=== PATIENT | male | born 1955 | race Caucasian/White ===

== ENCOUNTER 2018-06-17 01:21 | Inpatient (IN) ==
[2018-06-17] MEDS ORDERED: Naloxone 0.4 MG/ML INJ IVP PRN (06:11)
[2018-06-17] MEDS ORDERED: Ondansetron 4 MG/2 ML VIAL IVP PRN (06:11)
--- NOTE | 2018-06-17 06:24 | Internal Med History&Physical ---
Date of Encounter: 06/17/18 Time of Encounter: 05:55 Internal Medicine - H&P: HPI Chief complaint: abdominal pain Admitted From: Hospital to Hospital Transfer Plans for Post Hospital Care: Home History of present illness: Mr. VARGAS is a 63 year old male who presents in transfer from [facility] with concerns and complaints of abdominal pain. Workup there revealed patient to have partial small bowel obstruction. He was transferred to [facility] with surgical consultation with Dr. Argueta and admission to the hospitalist service. Upon my assessment of the patient, patient states he had sudden onset of abdominal pain, nausea, and vomiting which started roughly 24 hours ago. Because of severe worsening of symptoms, he came to ER where he was diagnosed with small bowel obstruction. He had an NG tube placed, received some pain medication, and received some IV fluids. He denies any fevers, chills, or night sweats. He denies any prior surgery of his abdomen. He denies any history of inflammatory bowel disease. He does complain of some mild constipation on occasion. Prior to yesterday, he has had no GI symptoms and felt well. He denies any chronic GERD, peptic ulcer disease, or any bowel problems in the past. There is no family history of any kind of chronic bowel disorder. Past Med Surg Social Fam HX - Past Medical History Attestation: Yes The following information was validated with the patient. Source: patient, other ([facility]) Medical history: cancer (skin), hyperlipidemia, hypertension, migraine, syncope Additional medical history: skin cancer (basal cell carnimona) 3-4 removed in the last 15 years. Syncope episodes approx 5 years ago. Psychiatric history: no psych history - Past Surgical History Surgical History: no surgical history Additional surgical history: skin cancer resection - Social History Smoking Status: Never smoker Smokeless Tobacco Status: No Alcohol use: occasionally Drug use: none Current living situation: Home, With Family Activity Level: Independent ambulation Recent Out of Country Travel Within the Last 8 Weeks: No - Family History Father Adopted: [place]: Chang Vargas Age: 44 Family Member Ethnicity: Non- Living Status: Age at : 44 Cause of : aneyrsm Hx Family Cardiac Disorders: No Hx Family Respiratory Disorders: No Hx Family Cancer: No Hx Family GI Disorders: No Hx Family Genitourinary Disorders: No Hx Family Endocrine Disorder: No Hx Family Musculoskeletal Disorders: No Hx Family Neuromuscular Disorders: No Hx Family Neurologic Disorders: Yes Hx Family HEENT Disorders: No Hx Family Autoimmune Disorders: No Hx Family Reproductive Disorders: No Hx Family Psychosocial Disorders: No Hx Family Medical Disorders: No Mother Living Status: Still Living Hx Family GI Disorders: No - Constitutional Constitutional: no chills, no fever(s), no night sweats - EENT Eyes: no blurry vision, no change in vision Ears: no ear pain, no tinnitus Nose, mouth and throat: no nasal congestion, no sore throat - Cardiovascular Cardiovascular ROS IM: no chest pain, no dyspnea, no dyspnea on exertion, no lightheadedness, no paroxysmal nocturnal dyspnea, no syncope - Respiratory Respiratory: no cough, no dyspnea, no hemoptysis, no chest congestion, no excessive phlegm production, no change in phlegm color, no pain with cough - Gastrointestinal Gastrointestinal: abdominal pain, constipation, nausea, vomiting, no diarrhea, no heartburn, no hematemesis, no hematochezia, no melena - Genitourinary Genitourinary ROS male: no dysuria, no flank pain, no hematuria - Musculoskeletal Musculoskeletal ROS IM: no arthralgias, no back pain - Integumentary Integumentary IM: no rash, no jaundice - Neurological Neurological ROS: no disequilibrium, no dizziness, no focal weakness, no jaya quent falls, no headache(s) - Psychiatric Psychiatric: no anxiety, no depression - Endocrine Endocrine IM: no cold intolerance, no heat intolerance, no polydipsia, no polyuria - Allergic/Immunologic Allergic/Immunologic: no wheezing, no GI upset with certain foods - Constitutional Vitals: Temp Pulse Resp BP Pulse Ox 99.0 F 110 16 119/80 95 06/17/18 04:00 06/17/18 04:00 06/17/18 04:00 06/17/18 04:00 06/17/18 05:40 General appearance: Present: cooperative, A&O X 3, pleasant, no acute distress, answers questions appropriately Exam: see below - Head Head exam: Present: atraumatic, normal inspection - Eye Eye exam: Present: EOMI, PERRL. Absent: scleral icterus Pupils: Present: normal accommodation - ENT ENT exam: Present: mucous membranes dry, normal exam, normal oropharynx Additional comments: NG tube in place - Neck Neck exam general surgery: Present: full ROM, supple, trachea midline. Absent: tenderness, nuchal rigidity, thyromegaly - Respiratory Respiratory exam: Present: CTAB. Absent: chest wall tenderness, rales, respiratory distress, rhonchi, wheezes - Cardiovascular Cardiovascular exam: Present: RRR, +S1, +S2, tachycardia (HR 100-110's). Absent: diastolic murmur, systolic murmur - GI/Abdominal GI/Abdominal exam: Present: distended, tenderness (mild diffuse), no peritoneal signs. Absent: guarding, hepatomegaly, normal bowel sounds, rebound, splenomegaly - Extremities Exam Extremities exam: Present: full ROM, normal capillary refill, warm, radial pulses palpable and symmetrical. Absent: calf tenderness, pedal edema, tenderness - Back Exam Back exam: Absent: CVA tenderness (L), CVA tenderness (R) - Neurological Exam Neurological exam: Present: alert, CN II-XII intact, oriented X3, no focal deficits, strengths equal and symetr throughout - Psychiatric Psychiatric exam: Present: normal affect, normal mood - Skin Skin exam: Present: dry, intact, warm Internal Med - H&P Results - Labs Labs: I reviewed the records and labs from [facility] and include the following: WBC 13.1 Hemoglobin 17.3 Hematocrit 51.0 Platelet count 289 Lactic acid level 2.0 Lipase 79 Sodium 136 Potassium 4.1 Chloride 97 Carbon Dioxide 28 BUN 17 Glucose [address] scan report suggests partial small bowel obstruction as evidenced by thickening and inflammatory changes in the right hypogastric region with a transition point in the area small bowel with some mesenteric edema. - Assessment and plan (1) SBO (small bowel obstruction) Current Visit: Yes Status: Acute Assessment and plan: 1. Will keep npo and continue NG to LIWS. 2. Consult surgery for assistance. 3. Will culture blood and star antibiotics to cover GI una. 4. IVF hydration and trend lactate levels. 5. Pain control with low dose IV Fentanyl and nausea control with PRN Zofran. (2) Hypertension Current Visit: Yes Status: Acute Assessment and plan: 1. Monitor BP closley. 2. Need to obtain and verify home med list. Qualifiers: Hypertension type: essential hypertension Qualified Code(s): I10 - Essential (primary) hypertension (3) DVT prophylaxis Current Visit: Yes Status: Acute Assessment and plan: 1. Heparin SQ.
[2018-06-17] MEDS: *HR* FentaNYL (PF) 100 MCG/2 ML VIAL IVP PRN ×2 (06:43→10:36)
[2018-06-17] MEDS: 0.9 % Sodium Chloride 1,000 ML IVC SCH ×4 (06:46→23:10)
[2018-06-17 07:51] LABS: Basophils % 0.1 %; Eosinophils % 0.1 %; Hemoglobin 16.1 g/dL (12.9-16.9); Immature Granulocytes % 0.4 % (0-4); Lymphocytes # 0.7 K/mcL (0.6-4.6); Lymphocytes % 4.9 %; Mean Corpuscular HGB Conc 33.5 g/dL (31.6-35.5); Mean Corpuscular Hemoglobin 30.3 pg (28.0-33.3); Mean Corpuscular Volume 90.2 fL (83.0-100.0); Mean Platelet Volume 8.7 fL (9.4-12.4); Monocytes # 0.9 K/mcL (0.0-1.3); Monocytes % 6.1 %; Neutrophils # 12.3 K/mcL (1.6-8.9); Platelet Count 230 K/mcL (140-400); Red Blood Count 5.32 M/mcL (4.19-5.50); Red Cell Distribution Width 13.2 % (11.5-14.5); Segmented Neutrophils % 88.4 %
[2018-06-17] MEDS ORDERED: MetroNIDAZOLE 500 MG/100 ML 500 MG/100 ML BAG IVPB SCH ×3 (08:00→16:00)
[2018-06-17 08:09] LABS: Alanine Aminotransferase 32 Units/L (7-52); Albumin 3.8 g/dL (3.5-5.7); Albumin/Globulin Ratio 1.5 (1.1-2.2); Alkaline Phosphatase 90 Units/L (34-104); Aspartate Amino Transferase 23 Units/L (13-39); BUN/Creatinine Ratio 12 (6-26); Bilirubin,Total 1.5 mg/dL (0.3-1.0); Blood Urea Nitrogen 16 mg/dL (8-23); Calcium 9.4 mg/dL (8.6-10.3); Carbon Dioxide 28 mEq/L (23-29); Chloride 100 mEq/L (98-107); Globulin 2.6 g/dL (2.4-3.5); Glucose 126 mg/dL (70-105); Magnesium 1.7 mg/dL (1.6-2.6); Osmolality,Calculated 285 (280-300); Potassium 4.6 mEq/L (3.5-5.1); Sodium 136 mEq/L (136-145); Total Protein 6.4 g/dL (6.4-8.9); eGFR For Non-African Americans 54 (> 60)
[2018-06-17 08:41] LABS: INR 1.2; Prothrombin Time 13.5 Seconds (9.4-12.1)
--- NOTE | 2018-06-17 11:24 | Event Note ---
Date of Encounter: 06/17/18 Time of Encounter: 09:15 He should not continues to have abdominal pain and distention. Having decent output through nasogastric tube. Had about 310 mL since this morning. We will continue IV fluids. Follow surgery recommendations. Will hold antibiotics for now as patient does not have any or chills. Mild leukocytosis is related to SBO. Will obtain acute abdominal series.
[2018-06-17] MEDS ORDERED: Ringers Solution, Lactated 500 ML IVC ONE (13:23)
[2018-06-17] MEDS: MetroNIDAZOLE 500 MG/100 ML 500 MG/100 ML BAG IVPB SCH ×2 (13:55→21:27)
--- NOTE | 2018-06-17 13:59 | General Surgery Consult Note ---
Date of Encounter: 06/17/18 Time of Encounter: 13:00 History of Present Illness Consult date: 06/17/18 Reason for consult: other (possible SBO) Requesting physician: Eddie Casas History of present illness: 63-year-old male transferred from [facility] emergency department after presenting there with a proximally a 48 hour history of progressive abdominal pain. The patient and his family describes sudden onset of abdominal pain which progressively worsened. He denies any nausea or vomiting. The madelin ent presented to [facility] for further evaluation and treatment. There he was noted to to be afebrile with a leukocytosis, 13.1; hemoglobin 17.3, hematocrit 51.1. Neutrophils are elevated at 12.0; electrolytes were unremarkable but BUN was 17 with creatinine 1.44. Lactic acid was slightly elevated at 2.0; bilirubin was 1.7, alkaline phosphatase 118, AST 28, ALT 40. CT of the abdomen/pelvis demonstrated thickening and inflammatory changes within the right hypogastric region with a transition point in the area of small bowel with mesenteric edema. I reviewed these films with [facility] - additional findings include small bowel diverticulosis with adjacent wall thickening and inflammation consistent with diverticulitis. Some thickening in the sigmoid colon with diverticulosis noted but the acute inflammatory changes appeared to primarily involve the small bowel. Incidental note of bilateral fat-containing inguinal hernias was also described by the [facility] radiologist The patient was transferred to [facility] for further evaluation and care. following arrival at [facility], the patient was given IV fluids, IV antibiotics were initiated and NG tube was placed. As a result of these interventions the patient was feeling slightly improved this morning but still complaining of abdominal pain. Past medical history is not notable for any previous surgeries. Patient has had cutaneous neoplasm (BCC) in the remote past The patient denied significant medical history no medical records from [facility] indicate a previous history of hyperlipidemia, hypertension, migraines and a remote history of syncope. Allergies: No known drug allergies Social history: Patient is , lives with his spouse; he does not smoke, never has; he does admit to weekend alcohol consumption; the patient denies any illicit drug use. Physical examination reveals a large, age-appropriate male in no acute distress. He is 1.78 m tall, 109.1 kg, BMI 34.5 Skin is warm, without obvious jaundice, no icterus Lungs were clear bilaterally; he did experience some periumbilical pain on deep inspiration Cardiac: Rate was regular with no appreciable murmur Abdomen was soft with hypoactive bowel sounds. Tenderness was notable caudal to the umbilicus in the midline. I did not detect any intra-abdominal masses. I did not detect any peritoneal signs. Extremities no obvious clubbing, cyanosis or edema. Labs: Completed this morning at [facility] WBC 13.9 with 12.3 neutrophils; hemoglobin 16.1, hematocrit 48.0. Sodium 136, potassium 4.6, chloride 100, bicarbonate 28, BUN 16, creatinine 1.33. Total bilirubin 1.5, alkaline phosphatase 90, AST 23, ALT 32. Impression: Acute small bowel diverticulitis. No obvious perforation. No obvious small bowel perforation per my review with [facility]. The patient's acute abdominal pain appears to be due to the demonstrated small bowel diverticulitis. Acute dehydration with elevated creatinine consistent with acute kidney injury. (Patient gives no known history of renal disease) Patient also has sigmoid diverticulosis without evidence of diverticulitis. Recommendations: Resume Cipro and metronidazole which were initiated on admission but discontinued this morning. Continue aggressive IV fluid resuscitation. NG has been removed. The patient will be kept NPO until his abdominal pain has responded to the current interventions. This is been discussed with Dr. Perez as well as [facility] This is also discussed with the patient and his family. Past Med Surg Social Fam HX - Past Medical History Medical history: cancer (skin), hyperlipidemia, hypertension, migraine, syncope Additional medical history: skin cancer (basal cell carnimona) 3-4 removed in the last 15 years. Syncope episodes approx 5 years ago. Psychiatric history: no psych history - Past Surgical History Surgical History: no surgical history Additional surgical history: skin cancer resection - Social History Smoking Status: Never smoker Smokeless Tobacco Status: No Alcohol use: occasionally Drug use: none - Family History Father Adopted: [place]: Chang Tatum Age: 44 Family Member Ethnicity: Non- Living Status: Age at : 44 Cause of : aneyrsm Hx Family Cardiac Disorders: No Hx Family Respiratory Disorders: No Hx Family Cancer: No Hx Family GI Disorders: No Hx Family Genitourinary Disorders: No Hx Family Endocrine Disorder: No Hx Family Musculoskeletal Disorders: No Hx Family Neuromuscular Disorders: No Hx Family Neurologic Disorders: Yes Hx Family HEENT Disorders: No Hx Family Autoimmune Disorders: No Hx Family Reproductive Disorders: No Hx Family Psychosocial Disorders: No Hx Family Medical Disorders: No Mother Living Status: Still Living Hx Family GI Disorders: No Medications and Allergies Allergy/AdvReac Type Severity Reaction Status Date / Time No Known Drug Allergies AdvReac Unknown See Verified 06/17/18 06:34 Comments Review of Systems All systems PM: The remainder of the systems were reviewed and are negative General Surgery Exam Initial Vital Signs Temp Pulse Resp BP Pulse Ox 99.0 F 110 16 119/80 95 06/17/18 04:00 06/17/18 04:00 06/17/18 04:00 06/17/18 04:00 06/17/18 04:00 Exam Initial Vital Signs Temp Pulse Resp BP Pulse Ox 99.0 F 110 16 119/80 95 06/17/18 04:00 06/17/18 04:00 06/17/18 04:00 06/17/18 04:00 06/17/18 04:00 Results - Labs 06/17/18 07:36 06/17/18 07:36 Abnormal lab results WBC 13.9 K/mcL (4.3-11.1) H 06/17/18 07:36 MPV 8.7 fL (9.4-12.4) L 06/17/18 07:36 Neutrophils # 12.3 K/mcL (1.6-8.9) H 06/17/18 07:36 PT 13.5 Seconds (9.4-12.1) H 06/17/18 07:36 Creatinine 1.33 mg/dL (0.70-1.30) H 06/17/18 07:36 Est GFR (Non-Af Amer) 54 (> 60) L 06/17/18 07:36 Glucose 126 mg/dL (70-105) H 06/17/18 07:36 POC Glucose 110 mg/dL (70-99) H 06/17/18 07:09 Total Bilirubin 1.5 mg/dL (0.3-1.0) H 06/17/18 07:36 Diabetes panel 06/17/18 Range/Units 07:36 Sodium 136 (136-145) mEq/L Potassium 4.6 (3.5-5.1) mEq/L Chloride 100 (98-107) mEq/L Carbon Dioxide 28 (23-29) mEq/L BUN 16 (8-23) mg/dL Creatinine 1.33 H (0.70-1.30) mg/dL Glucose 126 H (70-105) mg/dL Calcium 9.4 (8.6-10.3) mg/dL AST 23 (13-39) Units/L ALT 32 (7-52) Units/L Alkaline Phosphatase 90 (34-104) Units/L Albumin 3.8 (3.5-5.7) g/dL Calcium panel 06/17/18 Range/Units 07:36 Calcium 9.4 (8.6-10.3) mg/dL Albumin 3.8 (3.5-5.7) g/dL Pituitary panel 06/17/18 Range/Units 07:36 Sodium 136 (136-145) mEq/L Potassium 4.6 (3.5-5.1) mEq/L Chloride 100 (98-107) mEq/L Carbon Dioxide 28 (23-29) mEq/L BUN 16 (8-23) mg/dL Creatinine 1.33 H (0.70-1.30) mg/dL Glucose 126 H (70-105) mg/dL Calcium 9.4 (8.6-10.3) mg/dL Adrenal panel 06/17/18 Range/Units 07:36 Sodium 136 (136-145) mEq/L Potassium 4.6 (3.5-5.1) mEq/L Chloride 100 (98-107) mEq/L Carbon Dioxide 28 (23-29) mEq/L BUN 16 (8-23) mg/dL Creatinine 1.33 H (0.70-1.30) mg/dL Glucose 126 H (70-105) mg/dL Calcium 9.4 (8.6-10.3) mg/dL Total Bilirubin 1.5 H (0.3-1.0) mg/dL AST 23 (13-39) Units/L ALT 32 (7-52) Units/L Alkaline Phosphatase 90 (34-104) Units/L Albumin 3.8 (3.5-5.7) g/dL All other labs normal. Consult Discharge Plan - Plan Referrals: Logan Miranda DO [Primary Care Provider] -
[2018-06-17] MEDS: Pantoprazole 40 MG VIAL IVP SCH (18:43)
[2018-06-17] MEDS: *HR* Heparin 5,000 UNIT/ML VIAL SQ SCH (18:43)
[2018-06-17] MEDS: *HR* OxyCODONE Immed Rel 5 MG TABLET PO PRN (19:00)
--- NOTE | 2018-06-17 20:51 | Electrocardiograph Report ---
[address] [place] [address] Test Date: 2018-06-17 Pat Name: Danielito Tatum Department: 115 Room: 3A23 Gender: M C Architect: GANESH : 1955 Requested By: Eddie Casas Order Number: [id number] Reading MD: Erica Wallace Measurements Intervals [place] Rate: 103 P: 51 IA: 166 QRS: 21 QRSD: 98 T: 5 QT: 315 QTc: 375 Interpretive Statements SINUS TACHYCARDIA ABNORMAL RHYTHM ECG Electronically Signed On 06-17-2018 20:50:21 EST by Erica Wlalace
[2018-06-18 04:23] LABS: Basophils % 0.3 %; Eosinophils % 0.1 %; Hematocrit 40.6 % (37.5-50.1); Immature Granulocytes % 0.6 % (0-4); Lymphocytes # 0.5 K/mcL (0.6-4.6); Lymphocytes % 4.5 %; Mean Corpuscular HGB Conc 33.5 g/dL (31.6-35.5); Mean Corpuscular Volume 89.6 fL (83.0-100.0); Mean Platelet Volume 8.9 fL (9.4-12.4); Monocytes # 0.8 K/mcL (0.0-1.3); Monocytes % 6.6 %; Neutrophils # 10.3 K/mcL (1.6-8.9); Platelet Count 195 K/mcL (140-400); Red Blood Count 4.53 M/mcL (4.19-5.50); Red Cell Distribution Width 13.3 % (11.5-14.5); Segmented Neutrophils % 87.9 %
[2018-06-18 04:24] LABS: Hemoglobin 13.6 g/dL (12.9-16.9)
[2018-06-18 04:42] LABS: BUN/Creatinine Ratio 17 (6-26); Blood Urea Nitrogen 19 mg/dL (8-23); Calcium 8.2 mg/dL (8.6-10.3); Carbon Dioxide 26 mEq/L (23-29); Chloride 103 mEq/L (98-107); Glucose 134 mg/dL (70-105); Osmolality,Calculated 284 (280-300); Sodium 135 mEq/L (136-145); eGFR For Non-African Americans > 60 (> 60)
[2018-06-18] MEDS: *HR* Heparin 5,000 UNIT/ML VIAL SQ SCH ×2 (05:09→17:26)
[2018-06-18] MEDS: Pantoprazole 40 MG VIAL IVP SCH ×2 (05:10→17:26)
[2018-06-18] MEDS: MetroNIDAZOLE 500 MG/100 ML 500 MG/100 ML BAG IVPB SCH ×3 (05:10→21:10)
[2018-06-18] MEDS ORDERED: 0.9 % Sodium Chloride 1,000 ML IVC SCH (08:45)
[2018-06-18] MEDS: *HR* OxyCODONE Immed Rel 5 MG TABLET PO PRN (10:10)
--- NOTE | 2018-06-18 10:39 | Internal Med Progress Note ---
Hospitalist Progress Note - Encounter Date of Encounter: 06/18/18 Time of Encounter: 09:20 - Subjective Interval History: Patient continues to have abdominal pain, although it is much better than when he initially presented. Describes it as a cramping kind of pain that is intermittent.. No fever or chills reported overnight. Tolerating ice chips well. Has not had a bowel movement. No flatus yet. - Exam Vitals: Temp Pulse Resp BP Pulse Ox 98.5 F 107 16 144/85 94 06/18/18 07:01 06/18/18 07:01 06/18/18 07:01 06/18/18 07:01 06/18/18 07:01 Exam: General: Patient is alert, mild distress, oriented x 3 ENT: Mucous membranes moist Respiratory: Good respiratory effort. Normal breath sounds. No wheezing or crackles. Cardiovascular: Regular rate and rhythm. s1 and s2 normal No clicks, rubs, gallops, or murmurs. No pedal edema Abdomen: Abdomen is soft, tender, distended Bowel sounds are hypoactive Musculoskeletal: Spontaneously moving all extremities Skin: warm, dry, intact. Neuro: Alert oriented x 3 normal cranial nerves, no focal deficits - Assessment and Plan (1) Diverticulitis small intestine Current Visit: Yes Status: Acute Assessment and Plan: Patient with acute small bowel diverticulitis with partial SBO. Surgery following. Keep nothing by mouth. Continue IV antibiotics and IV fluids. Follow surgery recommendations. Moderate risk for complications (2) SBO (small bowel obstruction) Current Visit: Yes Status: Ruled-out (3) Hypertension Current Visit: Yes Status: Chronic Assessment and Plan: Blood pressure is slightly elevated at. As patient is nothing by mouth, we will place him on IV medications to help control his blood pressure better. (4) DVT prophylaxis Current Visit: Yes Status: Acute Assessment and Plan: Continue subcutaneous heparin - Time Spent with Patient Total time spent is greater than 50% in coordination of care (as documented) at patient's floor/unit and/or counseling patient: Internal Medicine: Result - Labs CBC & Chem 7: 06/18/18 03:55 06/18/18 03:55 Labs: Short CBC 06/18/18 Range/Units 03:55 WBC 11.7 H (4.3-11.1) K/mcL Hgb 13.6 D (12.9-16.9) g/dL Hct 40.6 (37.5-50.1) % Plt Count 195 (140-400) K/mcL Neutrophils # 10.3 H (1.6-8.9) K/mcL BMP 06/18/18 03:55 Sodium 135 L Potassium 4.0 Chloride 103 Carbon Dioxide 26 BUN 19 Creatinine 1.09 Glucose 134 H Calcium 8.2 L - ABG Interpretation ABG results: PT/INR, D-dimer PT 13.5 Seconds (9.4-12.1) H 06/17/18 07:36 - Impressions Impressions Chest/Abdomen X-ray 06/17/18 11:22 IMPRESSION: Stable partial small bowel obstruction. D/ / 06/17/2018 12:17:11 Fritz Barroso MD / binh Interpreting Provider: Fritz Barroso MD Consult Discharge Plan - Plan Referrals: Logan Miranda DO [Primary Care Provider] - (1) Diverticulitis small intestine Qualifiers: Diverticulitis bleeding: without bleeding Diverticulitis complication: unspecified complication status Qualified Code(s): K57.12 - Diverticulitis of small intestine without perforation or abscess without bleeding (3) Hypertension Qualifiers: Hypertension type: essential hypertension Qualified Code(s): I10 - Essential (primary) hypertension
--- NOTE | 2018-06-18 11:44 | General Surgery Progress Note ---
Date of Encounter: 06/18/18 Time of Encounter: 11:39 Subjective Patient reports: feels better, still having pain, pain is less Narrative: General Surgery - Patient feeling better; cramping abdominal pain is diminished. No nausea or vomiting. The patient is twister tender low abdomen without discernible intra-abdominal masses. No elicited peritoneal signs Maximum temperature 99.9, tachycardia persists, ranged 106 - 112; respiratory rate 16, blood pressure 144/85. Lungs: Clear, no obvious pain on deep inspiration Abdomen: Soft with active bowel sounds. Tenderness caudal to the umbilicus without palpable masses. No rebound. No flatus or BM Laboratories: WBC has improved to 11.7, neutrophils to reduce to 10.3. Hemoglobin 13.6, hematocrit 40.6 reflective of rehydration. Platelet count 195,000 Sodium 135, potassium 4.0, chloride 103, bicarbonate 26, BUN 19, creatinine corrected to 1.09 Impression: Acute small bowel diverticulitis without obvious perforation. Patient responding to medical management. Bowel activity has improved, however, no flatus or BM yet. Persistent abdominal pain but it has diminished Renal status returned to normal Plan: Allow clear liquids Encourage activity out of bed Continue to monitor for worsening abdominal pain Repeat CBC in a.m. Objective Vital Signs - Last 8 Hours Temp Pulse Resp BP Pulse Ox 06/18/18 10:51 99.9 F H 112 14 127/86 92 06/18/18 07:01 98.5 F 107 16 144/85 94 06/18/18 04:56 99.0 F 109 16 120/78 94 Intake and Output 06/17/18 06/18/18 06/18/18 23:59 07:59 15:59 Intake Total 2860 / 2860 1300 / 1300 Output Total 275 / 275 325 / 325 Balance 2585 / 2585 975 / 975 Intake: IV Fluids 2800 / 2800 1300 / 1300 0.9 % Sodium Chloride 1,000 ML 2000 / 2000 1000 / 1000 @ 125 mls/hr IVC .Q8H [facility] Rx#: [id number] Lactated Ringers 500 ML @ 1000 500 / 500 mls/hr IVC .Q30M ONE Rx#: [id number] Cipro Premix 400 MG/200 ML 400 200 / 200 200 / 200 mg In 200 ml @ 200 mls/hr IVPB Q12H [facility] Rx#:[id number] Flagyl Premix 500 MG/100 ML 500 100 / 100 100 / 100 mg In 100 ml @ 100 mls/hr IVPB Q8H [facility] Rx#:[id number] Oral 60 / 60 0 / 0 Output: Urine 275 / 275 325 / 325 Other: Meal NPO # Voids 1 # Bowel Movements 0 0 Weight 105.9 kg Blood Glucose* 102 108 Patient Weight 06/18/18 23:59 Weight 105.9 kg - Labs 06/18/18 03:55 06/18/18 03:55 Diabetes panel 06/18/18 Range/Units 03:55 Sodium 135 L (136-145) mEq/L Potassium 4.0 (3.5-5.1) mEq/L Chloride 103 (98-107) mEq/L Carbon Dioxide 26 (23-29) mEq/L BUN 19 (8-23) mg/dL Creatinine 1.09 (0.70-1.30) mg/dL Glucose 134 H (70-105) mg/dL Calcium 8.2 L (8.6-10.3) mg/dL Calcium panel 06/18/18 Range/Units 03:55 Calcium 8.2 L (8.6-10.3) mg/dL Pituitary panel 06/18/18 Range/Units 03:55 Sodium 135 L (136-145) mEq/L Potassium 4.0 (3.5-5.1) mEq/L Chloride 103 (98-107) mEq/L Carbon Dioxide 26 (23-29) mEq/L BUN 19 (8-23) mg/dL Creatinine 1.09 (0.70-1.30) mg/dL Glucose 134 H (70-105) mg/dL Calcium 8.2 L (8.6-10.3) mg/dL Adrenal panel 06/18/18 Range/Units 03:55 Sodium 135 L (136-145) mEq/L Potassium 4.0 (3.5-5.1) mEq/L Chloride 103 (98-107) mEq/L Carbon Dioxide 26 (23-29) mEq/L BUN 19 (8-23) mg/dL Creatinine 1.09 (0.70-1.30) mg/dL Glucose 134 H (70-105) mg/dL Calcium 8.2 L (8.6-10.3) mg/dL Consult Discharge Plan - Plan Referrals: Logan Miranda DO [Primary Care Provider] -
[2018-06-18] MEDS ORDERED: *HR* Metoprolol 5 MG/5 ML VIAL IVP SCH (12:00)
[2018-06-18] MEDS ORDERED: *HR* Metoprolol 5 MG/5 ML VIAL IVP PRN (12:49)
[2018-06-18] MEDS: 0.9 % Sodium Chloride 1,000 ML IVC SCH ×2 (12:51→23:40)
[2018-06-19 03:57] LABS: Basophils % 0.2 %; Eosinophils % 0.3 %; Hematocrit 39.9 % (37.5-50.1); Hemoglobin 13.5 g/dL (12.9-16.9); Immature Granulocytes % 0.5 % (0-4); Lymphocytes # 0.4 K/mcL (0.6-4.6); Lymphocytes % 4.6 %; Mean Corpuscular HGB Conc 33.8 g/dL (31.6-35.5); Mean Corpuscular Hemoglobin 30.3 pg (28.0-33.3); Mean Corpuscular Volume 89.7 fL (83.0-100.0); Mean Platelet Volume 9.3 fL (9.4-12.4); Monocytes # 0.6 K/mcL (0.0-1.3); Monocytes % 6.4 %; Neutrophils # 8.1 K/mcL (1.6-8.9); Platelet Count 209 K/mcL (140-400); Red Blood Count 4.45 M/mcL (4.19-5.50); Red Cell Distribution Width 13.2 % (11.5-14.5)
[2018-06-19] MEDS: MetroNIDAZOLE 500 MG/100 ML 500 MG/100 ML BAG IVPB SCH ×3 (05:18→22:05)
[2018-06-19] MEDS: Pantoprazole 40 MG VIAL IVP SCH ×2 (05:19→18:46)
[2018-06-19] MEDS: *HR* Heparin 5,000 UNIT/ML VIAL SQ SCH ×2 (05:19→18:46)
[2018-06-19] MEDS: *HR* OxyCODONE Immed Rel 5 MG TABLET PO PRN (07:29)
[2018-06-19] MEDS ORDERED: Aspirin Enteric Coated 81 MG Tablet PO SCH (09:00)
[2018-06-19] MEDS ORDERED: hydroCHLOROthiazide 25 MG TABLET PO SCH (09:00)
--- NOTE | 2018-06-19 10:08 | Internal Med Progress Note ---
Hospitalist Progress Note - Encounter Date of Encounter: 06/19/18 Time of Encounter: 08:45 - Subjective Interval History: Patient complaining of abdominal cramps after he eats. They do resolve after some time. He has not passed flatus or had a bowel movement yet. No fever or chills reported overnight. No new episodes of nausea or vomiting. - Exam Vitals: Temp Pulse Resp BP Pulse Ox 97.8 F 97 18 146/84 91 06/19/18 07:13 06/19/18 07:13 06/19/18 07:13 06/19/18 07:13 06/19/18 07:13 Exam: General: Patient is alert, mild distress, oriented x 3 ENT: Mucous membranes moist Respiratory: Good respiratory effort. Normal breath sounds. No wheezing or crackles. Cardiovascular: Regular rate and rhythm. s1 and s2 normal No clicks, rubs, gallops, or murmurs. No pedal edema Abdomen: Abdomen is soft, distended, mildly tender. Bowel sounds are present but hypoactive Musculoskeletal: Spontaneously moving all extremities Skin: warm, dry, intact. Neuro: Alert oriented x 3 normal cranial nerves, no focal deficits - Assessment and Plan (1) Diverticulitis small intestine Current Visit: Yes Status: Acute Assessment and Plan: With possible partial SBO. Patient complaining of abdominal cramps with diet. Surgery following. No further advancing of diet at this time. We will await surgery recommendations. WBC count normal now. Inflammation appears to be decreasing. No new episodes of fever. Continue current antibiotics. Continue gentle hydration. (2) SBO (small bowel obstruction) Current Visit: Yes Status: Ruled-out (3) Hypertension Current Visit: Yes Status: Chronic Assessment and Plan: Resume home medications. We will continue to monitor blood pressure and adjust antihypertensive regimen accordingly. (4) DVT prophylaxis Current Visit: Yes Status: Acute Assessment and Plan: Continue subcutaneous heparin - Time Spent with Patient Total time spent is greater than 50% in coordination of care (as documented) at patient's floor/unit and/or counseling patient: Internal Medicine: Result - Labs CBC & Chem 7: 06/19/18 03:14 06/18/18 03:55 Labs: Short CBC 06/19/18 Range/Units 03:14 WBC 9.2 (4.3-11.1) K/mcL Hgb 13.5 (12.9-16.9) g/dL Hct 39.9 (37.5-50.1) % Plt Count 209 (140-400) K/mcL Neutrophils # 8.1 (1.6-8.9) K/mcL - ABG Interpretation ABG results: PT/INR, D-dimer PT 13.5 Seconds (9.4-12.1) H 06/17/18 07:36 Consult Discharge Plan - Plan Referrals: Logan Miranda DO [Primary Care Provider] - (1) Diverticulitis small intestine Qualifiers: Diverticulitis bleeding: without bleeding Diverticulitis complication: unspecified complication status Qualified Code(s): K57.12 - Diverticulitis of small intestine without perforation or abscess without bleeding (3) Hypertension Qualifiers: Hypertension type: essential hypertension Qualified Code(s): I10 - Essential (primary) hypertension
[2018-06-19] MEDS ORDERED: Isovue-370 500 ML BOTTLE IVP ONE (11:00)
--- NOTE | 2018-06-19 11:00 | General Surgery Progress Note ---
Date of Encounter: 06/19/18 Time of Encounter: 10:53 Subjective Patient reports: feels better, no flatus, no bowel movement Narrative: General Surgery - Patient feeling better, previously described cramping abdominal pain appears to be diminishing. No nausea or vomiting. Clear liquid diet ordered but patient consuming very little. The patient remains afebrile, currently 97.8, pulse 96-99 (tachycardia appears to be resolved); RR 14; BP 134/69 Lungs: Clear; no obvious abdominal pain on deep inspiration Abdomen: Soft, nontender to palpation. No discernible intra-abdominal masses or rebound. Active bowel sounds though patient indicates He has not passed flatus or moved his bowels. Urine output: 450 mL 4 calendar day 06/18/18; 500 mL so far today but urine is extremely dark. Labs: WBC has returned to normal, 9.2, neutrophils have also returned to normal. Hemoglobin 13.5, hematocrit 39.9, platelet count 209,000. Impression: Resolving abdominal pain Acute small bowel diverticulitis - appears to be improving with IV antibiotics. Marginal urine output which is extremely dark - concentrated versus increased bilirubin. Provide additional fluids, check comprehensive metabolic profile Repeat CT abdomen and pelvis with IV and oral contrast Objective Vital Signs - Last 8 Hours Temp Pulse Resp BP Pulse Ox 06/19/18 07:13 97.8 F 97 18 146/84 91 06/19/18 03:35 98.7 F 96 18 127/72 92 Intake and Output 06/18/18 06/19/18 06/19/18 23:59 07:59 15:59 Intake Total 1880 / 1880 540 / 540 120 / 120 Output Total 450 / 450 400 / 400 100 / 100 Balance 1430 / 1430 140 / 140 20 / 20 Intake: IV Fluids 1400 / 1400 300 / 300 Cipro Premix 400 MG/200 ML 400 200 / 200 200 / 200 mg In 200 ml @ 200 mls/hr IVPB Q12H [facility] Rx#:[id number] Flagyl Premix 500 MG/100 ML 500 200 / 200 100 / 100 mg In 100 ml @ 100 mls/hr IVPB Q8H [facility] Rx#:[id number] Oral 480 / 480 240 / 240 120 / 120 Output: Urine 0 / 0 400 / 400 100 / 100 Catheter 450 / 450 Other: Meal clears dinner Breakfast Percent of Meal Consumed 15% # Voids 1 # Bowel Movements 0 0 Weight 107.1 kg Patient Weight 06/19/18 23:59 Weight 107.1 kg - Labs 06/19/18 03:14 06/18/18 03:55 Consult Discharge Plan - Plan Referrals: Logan Miranda DO [Primary Care Provider] -
[2018-06-19] MEDS ORDERED: Ringers Solution, Lactated 500 ML IVC ONE (11:12)
[2018-06-19] MEDS ORDERED: *HR* OxyCODONE Immed Rel 5 MG TABLET PO PRN (11:13)
[2018-06-19 12:30] LABS: Alanine Aminotransferase 19 Units/L (7-52); Albumin 3.1 g/dL (3.5-5.7); Albumin/Globulin Ratio 1.1 (1.1-2.2); Alkaline Phosphatase 77 Units/L (34-104); Aspartate Amino Transferase 15 Units/L (13-39); BUN/Creatinine Ratio 19 (6-26); Bilirubin,Total 0.6 mg/dL (0.3-1.0); Blood Urea Nitrogen 18 mg/dL (8-23); Calcium 8.7 mg/dL (8.6-10.3); Carbon Dioxide 26 mEq/L (23-29); Chloride 103 mEq/L (98-107); Globulin 2.9 g/dL (2.4-3.5); Glucose 128 mg/dL (70-105); Osmolality,Calculated 282 (280-300); Potassium 4.2 mEq/L (3.5-5.1); Sodium 134 mEq/L (136-145); eGFR For Non-African Americans > 60 (> 60)
[2018-06-19] MEDS: 0.9 % Sodium Chloride 1,000 ML IVC SCH (15:09)
[2018-06-19] MEDS ORDERED: *HR* HYDROmorphone (PF) 1 MG/ML SYRINGE IVP STA (21:02)
[2018-06-19] MEDS ORDERED: *HR* HYDROmorphone 20 MG/20 ML PCA IVC PRN (21:02)
[2018-06-19] MEDS ORDERED: Ondansetron 4 MG/2 ML VIAL IVP PRN (21:06)
[2018-06-19] MEDS ORDERED: *HR* Promethazine 25 MG/ML VIAL IVP PRN (21:06)
--- NOTE | 2018-06-19 21:13 | Event Note ---
Date of Encounter: 06/19/18 Time of Encounter: 21:07 Gemeral Suurgery - The patient's complaining of increased abdominal pain as well as persisting nausea. Temperature has increased to 99.2, otherwise patient is hemodynamically stable- Pulse 97-99, respirations 12-18, blood pressure 148/83 CT abdomen and pelvis completed earlier today notable for multiple dilated loops of small bowel with increased inflammation of the small bowel in the right mid abdomen. Perforation with an extraluminal fluid collection/abscess is also described. His total to this inflammation the small bowel is decompressed consistent with bowel obstruction, at least partial. The patient has failed IV therapy with progression of the small bowel inflamm ation. Surgical intervention is recommended. This is been discussed in detail. Exploratory celiotomy is planned in the a.m. Risks of surgery include hemorrhage, infection, intra-abdominal abscess, injury to adjacent structures. Small bowel resection may be necessary. This may include a entero-enterostomy versus jejunostomy (a bag to the outside). The patient has expressed understanding, as has his family. Surgical consent has been obtained. The patient is complaining of persistent nausea and is not able to tolerate oral medications. IV medications will be ordered to replace the pertinent oral meds. Other oral meds will be discontinued.
[2018-06-19] MEDS: D5% in 0.45% NACL 1,000 ML IVC SCH (21:57)
[2018-06-19] MEDS: *HR* Metoprolol 5 MG/5 ML VIAL IVP SCH (22:04)
[2018-06-20 02:55] LABS: Basophils % 0.4 %; Eosinophils # 0.1 K/mcL (0.0-0.6); Eosinophils % 1.5 %; Hematocrit 39.8 % (37.5-50.1); Hemoglobin 13.5 g/dL (12.9-16.9); Immature Granulocytes % 0.4 % (0-4); Lymphocytes # 0.8 K/mcL (0.6-4.6); Lymphocytes % 9.4 %; Mean Corpuscular HGB Conc 33.9 g/dL (31.6-35.5); Mean Corpuscular Hemoglobin 30.3 pg (28.0-33.3); Mean Corpuscular Volume 89.2 fL (83.0-100.0); Mean Platelet Volume 8.8 fL (9.4-12.4); Monocytes # 0.7 K/mcL (0.0-1.3); Monocytes % 8.2 %; Neutrophils # 6.7 K/mcL (1.6-8.9); Platelet Count 215 K/mcL (140-400); Red Blood Count 4.46 M/mcL (4.19-5.50); Red Cell Distribution Width 13.2 % (11.5-14.5); Segmented Neutrophils % 80.1 %
[2018-06-20 03:13] LABS: BUN/Creatinine Ratio 17 (6-26); Blood Urea Nitrogen 16 mg/dL (8-23); Calcium 8.3 mg/dL (8.6-10.3); Carbon Dioxide 28 mEq/L (23-29); Chloride 100 mEq/L (98-107); Glucose 135 mg/dL (70-105); Osmolality,Calculated 281 (280-300); Potassium 3.7 mEq/L (3.5-5.1); Sodium 134 mEq/L (136-145); eGFR For Non-African Americans > 60 (> 60)
[2018-06-20] MEDS: *HR* Metoprolol 5 MG/5 ML VIAL IVP SCH ×3 (04:07→21:24)
--- NOTE | 2018-06-20 05:53 | Event Note ---
Date of Encounter: 06/20/18 Time of Encounter: 04:45 Notified by nurse of patient having 13 beat run of vtach. EKG obtained shows sinus rhythm. Patient asymptomatic with no complaints. Morning labs similar to previous. Continue telemetry monitoring, nurse to notify of any changes.
[2018-06-20] MEDS: MetroNIDAZOLE 500 MG/100 ML 500 MG/100 ML BAG IVPB SCH ×3 (06:26→21:24)
[2018-06-20] MEDS: Pantoprazole 40 MG VIAL IVP SCH (06:26)
--- NOTE | 2018-06-20 08:09 | Anesthesia Evaluation PreOp ---
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) Other Medical History: Denies Any Significant HX Anesthesia History: No Prior Anesthetic Complications, Past Anesthesia (colonoscopy) Alcohol Use: occasionally Drug use: none Medications and Allergies Aspirin [Lo-Dose Aspirin EC] 81 mg PO DAILY 06/18/18 [History] Atorvastatin [Lipitor] 40 mg PO HS 06/18/18 [History] Losartan Potassium 100 mg PO DAILY 06/18/18 [History] hydroCHLOROthiazide [Hydrochlorothiazide] 12.5 mg PO DAILY 06/18/18 [History] Allergy/AdvReac Type Severity Reaction Status Date / Time No Known Drug Allergies AdvReac Unknown See Verified 06/18/18 09:30 Comments - Meds/Allergy Pre-op Review Medications Reviewed: Yes Allergies Reviewed: Yes Beta Blockers on Current Med List: No If Beta Blockers taken, Date/Time (Last Dose taken): lopressor at 407am Anesthesia Results - Labs 06/20/18 02:43 06/20/18 02:43 Laboratory Tests 06/17/18 07:36 PT 13.5 H INR 1.2 APTT 29.0 - Imaging EKG: report reviewed (SINUS TACHYCARDIA ABNORMAL RHYTHM ECG Electronically Signed On 06-17-2018 20:50:21 EST by Erica Wallace) Anesthesia Exam Vital Signs/O2 Sat, Most Current Temp Pulse Resp BP Pulse Ox 98.8 F 88 15 110/70 93 06/20/18 06:54 06/20/18 06:54 06/20/18 06:54 06/20/18 06:54 06/20/18 06:54 Weight: 108kg NPO (# of Hours): >8 - HEENT Pupil (Motor): Pupils equal, EOMI Mallampati: III Teeth: Poor dentition Oral Opening: Greater than 3 - WEB UI DESIGNER LOC: Oriented WEB UI DESIGNER Motor: Normal RUE, Normal LUE, Normal RLE, Normal LLE, Normal Face WEB UI DESIGNER Sensory: Normal: RUE, LUE, RLE, LLE, Face - Cardiac Rhythm: Regular - Pulmonary Breath Sounds: bilateral Clear Respiratory Effort: Symmetrical Anesthesia Assess/Plan ASA Score: 2 Level of consciousness: Cooperative Anesthetic Plan: General Monitoring Plan: Standard Monitors Recovery Plan: PACU
[2018-06-20 08:11] LABS: Magnesium 1.8 mg/dL (1.6-2.6); Phosphorous 2.4 mg/dL (2.7-4.5)
[2018-06-20] MEDS ORDERED: *HR* FentaNYL (PF) 100 MCG/2 ML VIAL ONE (08:25)
[2018-06-20] MEDS ORDERED: *HR* Propofol 200 MG/20 ML VIAL IVP ONE (08:26)
[2018-06-20] MEDS ORDERED: *HR* Midazolam HCl 2 MG/2 ML VIAL ONE (08:26)
[2018-06-20] MEDS ORDERED: *HR* Succinylcholine 200 MG/10 ML VIAL IVP ONE (08:26)
[2018-06-20] MEDS ORDERED: *HR* Rocuronium Bromide 50 MG/5 ML VIAL ONE (08:26)
[2018-06-20] MEDS ORDERED: Dexamethasone 4 MG/ML VIAL ONE (08:26)
[2018-06-20] MEDS ORDERED: Ondansetron 4 MG/2 ML VIAL ONE (08:26)
[2018-06-20] MEDS ORDERED: Lidocaine -MPF 4% 5 ML AMPUL ONE (08:26)
[2018-06-20] MEDS ORDERED: Lidocaine -MPF 2% 2 ML VIAL ONE (08:26)
[2018-06-20] MEDS ORDERED: Acetaminophen IV 1,000 MG/100 ML INFUS..BTL ONE (09:13)
[2018-06-20] MEDS ORDERED: *HR* OxyCODONE Immed Rel 5 MG TABLET PO PRN (09:26)
[2018-06-20] MEDS ORDERED: *HR* Morphine 2 MG/ML SYRINGE IVP PRN (09:26)
[2018-06-20] MEDS ORDERED: *HR* Meperidine 25 MG/ML SYRINGE IVP PRN (09:26)
[2018-06-20] MEDS ORDERED: *HR* Promethazine 25 MG/ML VIAL IVP PRN ×2 (09:26→13:52)
[2018-06-20] MEDS ORDERED: Ondansetron 4 MG/2 ML VIAL IVP ONE (09:26)
[2018-06-20] MEDS ORDERED: Ringers Solution, Lactated 1,000 ML IVC SCH (09:30)
[2018-06-20] MEDS ORDERED: *HR* PHENYLEPHRINE 1,000 MCG/10 ML SYRINGE IVP ONE (10:31)
[2018-06-20] MEDS ORDERED: Bupivacaine/EPI 1:200k 0.25%PF 30 ML VIAL ONE (10:45)
[2018-06-20] MEDS ORDERED: MetroNIDAZOLE 500 MG/100 ML 500 MG/100 ML BAG IVPB ONE (10:45)
[2018-06-20] MEDS ORDERED: Albumin Human 5% 25.0 GM/500 ML VIAL ONE (11:05)
[2018-06-20] MEDS ORDERED: Neostigmine Methylsulfate 3 MG/3 ML SYRINGE ONE (11:27)
[2018-06-20] MEDS ORDERED: *HR* HYDROMORPHONE 2 MG/ML VIAL ONE (11:35)
--- NOTE | 2018-06-20 12:27 | Operative Note ---
Date of procedure: 06/20/18 Pre-op diagnosis: SBO with intra peritoneal abscess, suspected perforation Post-op diagnosis: same Procedure: Exploratory celiotomy, lysis of adhesions (approximately 20 minutes); small bowel resection with stapled enteroenterostomy; incidental appendectomy Complications: None apparent Anesthesia: GETA Local Anesthetics: 0.25% Sensorcaine HCL with Epinephrine 1:200,000 SubQ (cc) (30 mL) Surgeon: Jean Argueta Was there an hospital administrative assistant present: No Estimated blood loss (cc): 10 IV fluids (cc): 1,600 (500 mL albumin) Specimen: segment jejunum, appendix, aerobic & aerobic mesentery cultures Disposition: PACU Procedure in Detail: The patient was brought to the operating room where he was placed supine on the procedure table. The patient was identified to appropriate person and procedure. The accuracy of this information was confirmed by the patient and procedure team. The patient was then intubated and anesthetized under the supervision of Dr. Debra Henning. The abdomen was prepped and draped in the usual sterile fashion. There were no palpable intra-abdominal masses detected when the abdomen was examined under anesthesia. An OG tube was passed by anesthesia. A midline incision was made from the xiphoid to the umbilicus. The incision was extended through the subcutaneous tissue. Bleeding points were controlled with electrocautery. The fascia was divided along the linea alba. The abdomen was entered atraumatically. Inflammatory fluid was encountered and evacuated with suction device. Exposure was facilitated with a self-retaining Omni tract retractor. The omentum was fixed in the pelvis. This was mobilized with the aid of an Ethicon Enseal dissector. It was then possible to examine the small bowel from the ligament of Treitz to the ileocecal valve. An obstructing mass was identified in the mid jejunum. The small bowel mesentery demonstrated some focal areas of fibrinous exudate consistent with prior abscess(es) in these locations. Aerobic and anaerobic cultures were obtained. Fibrinous exited it was debrided with DeBakey forceps. Multiple large diverticula were evident dispersed throughout the length of the small bowel. None demonstrated any thickening, inflammation, or evidence of perforation. The colon was also examined. Several uninflamed diverticula were evident in the transverse, descending, and sigmoid colon. No colonic diverticulitis was identified. The appendix was present in its usual location without obvious inflammation. The mesoappendix was divided at the junction between the appendix and cecum. The appendix was transected at its junction with the cecum using an Ethicon TX 60 mm stapler. The remaining mesoappendix was clamped with a curved Lety clamp, divided with the Ethicon Enseal dissector, and ligated with 2-0 si lk. The appendix was removed from the field. The obstructing lesion in the jejunum was again identified. The bowel transected proximal and distal to the obstructing mass using an Ethicon 75 mm linear stapler. The mesentery was divided the Ethicon Enseal dissector. The specimen was removed and taken off the field. A stapled side to side functional end to end enteroenterostomy was then completed. The small bowel ends were placed side by side, approximated with interrupted seromuscular 3-0 silk. The ends were opened, a stapled enteroenterostomy completed with an Ethicon linear stapler. The remaining defect in the small bowel was closed with interrupted 3-0 silk followed by application of an Ethicon TX 60 mm stapler. The mesenteric defect was closed with interrupted 3-0 silk. The small bowel was returned to its usual anatomic location as was the omentum. Abdomen was irrigated with warm sterile saline. It was then accomplished in layers. Peritoneum was approximated with running 0 Vicryl. The fascia was closed with interrupted [id number] 0 Vicryl. Approximately 30 mL of 0.25% bupivacaine with 1-200,000 units epinephrine was infiltrated into the fascia and skin edges. The subcutaneous tissue was approximated with running 3-0 Vicryl. The skin edges were approximated with cory. A dry sterile dressing was applied. The resected jejunum was opened on the back table. A large irregularly shaped fecalith was evident. It appeared to originate from one of the large diverticulum evident along the length of the small bowel. No evidence of malignancy was identified. The resected jejunum and appendix were sent to pathology. The aerobic and anaerobic cultures were sent to microbiology. The patient was taken to PACU in stable condition. Needle, sponge, and instrument counts were correct at the close of the case.
--- NOTE | 2018-06-20 12:58 | Anesthesia Evaluation Post Op ---
Date of Encounter: 06/20/18 Time of Encounter: 12:57 - Vital Signs Vital Signs: Vital Signs/O2 Sat, Most Current Temp Pulse Resp BP Pulse Ox 98.9 F 99 16 143/81 93 06/20/18 12:47 06/20/18 12:47 06/20/18 12:47 06/20/18 12:47 06/20/18 12:47 - Lungs Lungs: Clear Ascult./Percussion - Airway Airway: Non-obstructed - Cardiovascular Regular Rate - Mental Status Mental Status: Alert & Oriented, Answers Appropriately - Pain Pain Scale: 0 Pain Scale used: Numeric (1 - 10) - Nausea Vomiting Nausea Vomiting: Not Present - Hydration Hydration: NPO - Discharge PostOp Status: Transfer Patient to floor
--- NOTE | 2018-06-20 13:32 | Electrocardiograph Report ---
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
[2018-06-20] MEDS ORDERED: Ondansetron 4 MG/2 ML VIAL IVP PRN (13:52)
[2018-06-20] MEDS ORDERED: *HR* HYDROmorphone 20 MG/20 ML PCA IVC PRN (13:52)
[2018-06-20] MEDS ORDERED: Potassium Phosphate 44 MEQ in 0.9 % Sodium Chloride 250 ML IVPB ONE (13:52)
[2018-06-20] MEDS ORDERED: Naloxone 0.4 MG/ML INJ IVP PRN (13:52)
--- NOTE | 2018-06-20 14:10 | Internal Med Progress Note ---
Hospitalist Progress Note - Encounter Date of Encounter: 06/20/18 Time of Encounter: 14:08 - Subjective Interval History: Patient taken to surgery today for exploratory celiotomy. Underwent this procedure with lysis of adhesions, small bowel resection with stapled enteroenterostomy and incidental appendectomy. Back on the floor and on Dilaudid COMMERCIAL LOAN ADMINISTRATOR. He is feeling much better. Pain is well controlled. - Exam Vitals: Temp Pulse Resp BP Pulse Ox 98.9 F 102 16 130/79 92 06/20/18 12:47 06/20/18 12:57 06/20/18 12:57 06/20/18 12:57 06/20/18 12:57 Exam: General: Patient is alert, no acute distress, oriented 3 Respiratory: Good respiratory effort. Normal breath sounds. No wheezing or crackles. Cardiovascular: Regular rate and rhythm. s1 and s2 normal No clicks, rubs, gallops, or murmurs. No pedal edema Abdomen: Abdomen is soft,Distended tender. Bowel sounds are absent at this time Musculoskeletal: Spontaneously moving all extremities Skin: warm, dry, intact. Neuro: Alert oriented x 3 normal cranial nerves, no focal deficits - Assessment and Plan (1) Diverticulitis small intestine Current Visit: Yes Status: Acute Assessment and Plan: With perforation and abscess. He underwent surgery today. Currently on intravenous Dilaudid COMMERCIAL LOAN ADMINISTRATOR. Surgery following. Remains nothing by mouth. (2) SBO (small bowel obstruction) Current Visit: Yes Status: Acute Assessment and Plan: Due to small bowel diverticulitis with perforation and abscess. Underwent surgery with exploratory celiotomy and small bowel resection today. Keep nothing by mouth. IV fluids. IV pain meds. (3) Hypertension Current Visit: Yes Status: Chronic Assessment and Plan: Continue metoprolol intravenously 5 mg every 6 hours. (4) DVT prophylaxis Current Visit: Yes Status: Acute Assessment and Plan: With SCDs - Time Spent with Patient Total time spent is greater than 50% in coordination of care (as documented) at patient's floor/unit and/or counseling patient: Internal Medicine: Result - Labs CBC & Chem 7: 06/20/18 02:43 06/20/18 02:43 Labs: Short CBC 06/20/18 Range/Units 02:43 WBC 8.4 (4.3-11.1) K/mcL Hgb 13.5 (12.9-16.9) g/dL Hct 39.8 (37.5-50.1) % Plt Count 215 (140-400) K/mcL Neutrophils # 6.7 (1.6-8.9) K/mcL BMP 06/20/18 02:43 Sodium 134 L Potassium 3.7 Chloride 100 Carbon Dioxide 28 BUN 16 Creatinine 0.93 Glucose 135 H Calcium 8.3 L - ABG Interpretation ABG results: PT/INR, D-dimer PT 13.5 Seconds (9.4-12.1) H 06/17/18 07:36 - Impressions Impressions Abdomen/Pelvis CT 06/19/18 13:30 IMPRESSION: Increased inflammatory change surrounding small bowel within the right midabdomen with interval development of a contained perforation. Increased wall thickening of a loop of small bowel within the midabdomen left of midline. Decompressed small bowel beyond this suggests this causing partial small bowel obstruction. Critical results were called by Dr. Chaitanya Russell MD to DR. Jean Argueta on 06/19/2018 at 17:39. D/ / 06/19/2018 17:50:11 Chaitanya Russell MD / sameera Interpreting Provider: Chaitanya Russell MD Consult Discharge Plan - Plan Referrals: Logan Miranda DO [Primary Care Provider] - (1) Diverticulitis small intestine Qualifiers: Diverticulitis bleeding: without bleeding Diverticulitis complication: unspecified complication status Qualified Code(s): K57.12 - Diverticulitis of small intestine without perforation or abscess without bleeding (3) Hypertension Qualifiers: Hypertension type: essential hypertension Qualified Code(s): I10 - Essential (primary) hypertension
[2018-06-20] MEDS: D5% in 0.45% NACL 1,000 ML IVC SCH (14:21)
[2018-06-21 03:19] LABS: Basophils % 0.1 %; Hematocrit 39.8 % (37.5-50.1); Hemoglobin 13.4 g/dL (12.9-16.9); Immature Granulocytes % 0.4 % (0-4); Lymphocytes # 0.4 K/mcL (0.6-4.6); Lymphocytes % 3.5 %; Mean Corpuscular HGB Conc 33.7 g/dL (31.6-35.5); Mean Corpuscular Volume 89.2 fL (83.0-100.0); Monocytes # 0.7 K/mcL (0.0-1.3); Monocytes % 6.4 %; Platelet Count 224 K/mcL (140-400); Red Blood Count 4.46 M/mcL (4.19-5.50); Red Cell Distribution Width 13.4 % (11.5-14.5); Segmented Neutrophils % 89.6 %
[2018-06-21] MEDS: D5% in 0.45% NACL 1,000 ML IVC SCH ×4 (03:30→13:38)
[2018-06-21 03:35] LABS: BUN/Creatinine Ratio 16 (6-26); Blood Urea Nitrogen 13 mg/dL (8-23); Calcium 8.2 mg/dL (8.6-10.3); Carbon Dioxide 25 mEq/L (23-29); Chloride 103 mEq/L (98-107); Glucose 138 mg/dL (70-105); Magnesium 1.9 mg/dL (1.6-2.6); Osmolality,Calculated 282 (280-300); Sodium 135 mEq/L (136-145); eGFR For Non-African Americans > 60 (> 60)
[2018-06-21] MEDS: *HR* Metoprolol 5 MG/5 ML VIAL IVP SCH ×3 (04:07→08:56)
[2018-06-21] MEDS: MetroNIDAZOLE 500 MG/100 ML 500 MG/100 ML BAG IVPB SCH ×3 (04:07→21:00)
[2018-06-21] MEDS: Pantoprazole 40 MG VIAL IVP SCH (08:57)
--- NOTE | 2018-06-21 10:46 | Internal Med Progress Note ---
Hospitalist Progress Note - Encounter Date of Encounter: 06/21/18 Time of Encounter: 10:00 - Subjective Interval History: Patient is lying down in bed. Pain in his abdomen is well controlled with his HEAD OF PHYSICS. Has not passed flatus. No fevers reported overnight. - Exam Vitals: Temp Pulse Resp BP Pulse Ox 98.2 F 84 14 103/59 92 06/21/18 06:29 06/21/18 06:29 06/21/18 06:29 06/21/18 06:29 06/21/18 09:08 Exam: General: Patient is alert, mild distress, oriented x 3 ENT: Mucous membranes moist Respiratory: Good respiratory effort. Normal breath sounds. No wheezing or crackles. Cardiovascular: Regular rate and rhythm. s1 and s2 normal No clicks, rubs, gallops, or murmurs. No pedal edema Abdomen: Abdomen is distended, sutures bandaged. Bowel sounds are present Musculoskeletal: Spontaneously moving all extremities Skin: warm, dry, intact. Neuro: Alert oriented x 3 normal cranial nerves, no focal deficits - Assessment and Plan (1) Diverticulitis small intestine Current Visit: Yes Status: Acute Assessment and Plan: Postop day 1 following exploratory celiotomy with lysis of adhesions, small bowel resection and incidental appendectomy. Continue IV antibiotics. Pain control with intravenous HEAD OF PHYSICS pump. High risk for complications. Patient having bowel sounds. Surgery following. (2) SBO (small bowel obstruction) Current Visit: Yes Status: Acute Assessment and Plan: Postop day 1. Doing well overall. Remains nothing by mouth. (3) Hypertension Current Visit: Yes Status: Chronic Assessment and Plan: Continue IV Lopressor at At current dose (4) DVT prophylaxis Current Visit: Yes Status: Acute Assessment and Plan: Continue SCDs. Recommend to start subcutaneous heparin for DVT prophylaxis when okay with surgery. - Time Spent with Patient Total time spent is greater than 50% in coordination of care (as documented) at patient's floor/unit and/or counseling patient: Internal Medicine: Result - Labs CBC & Chem 7: 06/21/18 02:37 06/21/18 02:37 Labs: Short CBC 06/21/18 Range/Units 02:37 WBC 11.2 H (4.3-11.1) K/mcL Hgb 13.4 (12.9-16.9) g/dL Hct 39.8 (37.5-50.1) % Plt Count 224 (140-400) K/mcL Neutrophils # 10.0 H (1.6-8.9) K/mcL BMP 06/21/18 02:37 Sodium 135 L Potassium 4.0 Chloride 103 Carbon Dioxide 25 BUN 13 Creatinine 0.83 Glucose 138 H Calcium 8.2 L - ABG Interpretation ABG results: PT/INR, D-dimer PT 13.5 Seconds (9.4-12.1) H 06/17/18 07:36 Consult Discharge Plan - Plan Referrals: Logan Miranda DO [Primary Care Provider] - (1) Diverticulitis small intestine Qualifiers: Diverticulitis bleeding: without bleeding Diverticulitis complication: unspecified complication status Qualified Code(s): K57.12 - Diverticulitis of small intestine without perforation or abscess without bleeding (3) Hypertension Qualifiers: Hypertension type: essential hypertension Qualified Code(s): I10 - Essential (primary) hypertension
--- NOTE | 2018-06-21 12:43 | General Surgery Progress Note ---
Date of Encounter: 06/21/18 Time of Encounter: 12:15 Subjective Patient reports: feels better Narrative: General Surgery - POD #1 Patient feeling much improved; abdominal pain significantly diminished. Minimal incisional pain. No nausea or vomiting. The patient is afebrile, currently 97.9, pulse 82, respirations 16, blood pressure 150/93. Lungs: Clear; no obvious abdominal pain on deep inspiration Abdomen: Soft with minimal tenderness; no rebound. Rare, hypoactive bowel sounds Dressing removed, incision is intact clean and dry. Urine output: Approximately 1100 mL so far today Microbiology: Operative cultures pending Labs: WBC 11.2, neutrophils 10.0 - likely response to surgery; Hemoglobin 13.4, hematocrit 39.8. Platelet count 224,000 Sodium 135, potassium 4.0, chloride 103, BUN 13, creatinine 0.83 Phosphorus 3.0 (hypophosphatemia corrected); magnesium 1.9 Accu-Cheks 109 146 Impression: Postoperative day #1, status post exploratory celiotomy with lysis of adhesions and small bowel resection. Obstructing fecal mass, most likely calcified stool from a large small bowel diverticulum. Resected. Acceptable postoperative status. Recommendations: Increase activity out of bed; ambulate in the hallways at least 2-3 times Continue incentive spirometry Resume subcutaneous heparin Maintain [employer] Dilaudid for now Hold diet until bowel activity becomes more apparent. Continue IV antibiotics pending operative cultures Objective Vital Signs - Last 8 Hours Temp Pulse Resp BP Pulse Ox 06/21/18 11:07 97.9 F 82 16 150/93 90 06/21/18 09:08 92 06/21/18 06:29 98.2 F 84 14 103/59 92 Intake and Output 06/20/18 06/21/18 06/21/18 23:59 07:59 15:59 Intake Total 100 / 100 1200 / 1200 0 / 0 Output Total 650 / 650 550 / 550 550 / 550 Balance -550 / -550 650 / 650 -550 / -550 Intake: IV Fluids 100 / 100 1200 / 1200 D5% And 0.45% Nacl 1000 Ml Bag 1000 / 1000 1,000 ML @ 90 mls/hr IVC . [id number] [facility] Rx#:[id number] Cipro Premix 400 MG/200 ML 400 200 / 200 mg In 200 ml @ 200 mls/hr IVPB Q12H [facility] Rx#:[id number] Flagyl Premix 500 MG/100 ML 500 100 / 100 mg In 100 ml @ 100 mls/hr IVPB Q8H [facility] Rx#:[id number] Oral 0 / 0 0 / 0 0 / 0 Output: Urine 650 / 650 550 / 550 550 / 550 Other: Meal NPO DINNER NPO # Voids 1 2 Weight 108.7 kg Blood Glucose* 122 118 110 Patient Weight 06/21/18 23:59 Weight 108.7 kg - Labs 06/21/18 02:37 06/21/18 02:37 Diabetes panel 06/21/18 Range/Units 02:37 Sodium 135 L (136-145) mEq/L Potassium 4.0 (3.5-5.1) mEq/L Chloride 103 (98-107) mEq/L Carbon Dioxide 25 (23-29) mEq/L BUN 13 (8-23) mg/dL Creatinine 0.83 (0.70-1.30) mg/dL Glucose 138 H (70-105) mg/dL Calcium 8.2 L (8.6-10.3) mg/dL Calcium panel 06/21/18 Range/Units 02:37 Calcium 8.2 L (8.6-10.3) mg/dL Phosphorus 3.0 (2.7-4.5) mg/dL Pituitary panel 06/21/18 Range/Units 02:37 Sodium 135 L (136-145) mEq/L Potassium 4.0 (3.5-5.1) mEq/L Chloride 103 (98-107) mEq/L Carbon Dioxide 25 (23-29) mEq/L BUN 13 (8-23) mg/dL Creatinine 0.83 (0.70-1.30) mg/dL Glucose 138 H (70-105) mg/dL Calcium 8.2 L (8.6-10.3) mg/dL Adrenal panel 06/21/18 Range/Units 02:37 Sodium 135 L (136-145) mEq/L Potassium 4.0 (3.5-5.1) mEq/L Chloride 103 (98-107) mEq/L Carbon Dioxide 25 (23-29) mEq/L BUN 13 (8-23) mg/dL Creatinine 0.83 (0.70-1.30) mg/dL Glucose 138 H (70-105) mg/dL Calcium 8.2 L (8.6-10.3) mg/dL Consult Discharge Plan - Plan Referrals: Logan Miranda DO [Primary Care Provider] -
[2018-06-21] MEDS: *HR* Heparin 5,000 UNIT/ML VIAL SQ SCH (20:02)
[2018-06-22] MEDS: MetroNIDAZOLE 500 MG/100 ML 500 MG/100 ML BAG IVPB SCH ×3 (03:35→20:16)
[2018-06-22 03:52] LABS: Basophils % 0.2 %; Eosinophils # 0.1 K/mcL (0.0-0.6); Eosinophils % 0.7 %; Hematocrit 37.8 % (37.5-50.1); Hemoglobin 12.5 g/dL (12.9-16.9); Immature Granulocytes % 0.6 % (0-4); Lymphocytes # 0.8 K/mcL (0.6-4.6); Mean Corpuscular HGB Conc 33.1 g/dL (31.6-35.5); Mean Corpuscular Hemoglobin 30.2 pg (28.0-33.3); Mean Corpuscular Volume 91.3 fL (83.0-100.0); Mean Platelet Volume 9.4 fL (9.4-12.4); Monocytes # 0.8 K/mcL (0.0-1.3); Monocytes % 8.5 %; Neutrophils # 8.1 K/mcL (1.6-8.9); Platelet Count 195 K/mcL (140-400); Red Blood Count 4.14 M/mcL (4.19-5.50); Red Cell Distribution Width 13.6 % (11.5-14.5)
[2018-06-22 03:59] LABS: BUN/Creatinine Ratio 19 (6-26); Blood Urea Nitrogen 15 mg/dL (8-23); Carbon Dioxide 26 mEq/L (23-29); Chloride 104 mEq/L (98-107); Glucose 107 mg/dL (70-105); Osmolality,Calculated 283 (280-300); Potassium 4.1 mEq/L (3.5-5.1); Sodium 136 mEq/L (136-145); eGFR For Non-African Americans > 60 (> 60)
[2018-06-22] MEDS: *HR* Heparin 5,000 UNIT/ML VIAL SQ SCH ×2 (05:09→16:52)
[2018-06-22] MEDS: D5% in 0.45% NACL 1,000 ML IVC SCH ×2 (05:10→14:16)
[2018-06-22] MEDS: hydroCHLOROthiazide 25 MG TABLET PO SCH (09:00)
[2018-06-22] MEDS: Pantoprazole 40 MG VIAL IVP SCH (09:01)
--- NOTE | 2018-06-22 10:46 | Internal Med Progress Note ---
Hospitalist Progress Note - Encounter Date of Encounter: 06/22/18 Time of Encounter: 08:50 - Subjective Interval History: Patient is lying down in bed. Abdominal pain is fairly controlled. Has not passed flatus or stools yet. No fever or chills reported overnight. Denies any chest pain or palpitations. - Exam Vitals: Temp Pulse Resp BP Pulse Ox 98.0 F 82 18 141/88 92 06/22/18 10:35 06/22/18 10:35 06/22/18 10:35 06/22/18 10:35 06/22/18 10:35 Exam: General: Patient is alert, mild distress, oriented x 3 Respiratory: Good respiratory effort. Normal breath sounds. No wheezing or crackles. Cardiovascular: Regular rate and rhythm. s1 and s2 normal No clicks, rubs, gallops, or murmurs. No pedal edema Abdomen: Abdomen is soft, tender at surgical site. Bowel sounds are present Musculoskeletal: Spontaneously moving all extremities Skin: warm, dry, intact. Neuro: Alert oriented x 3 normal cranial nerves, no focal deficits - Assessment and Plan (1) Diverticulitis small intestine Current Visit: Yes Status: Acute Assessment and Plan: Postop day 2. Status post exploratory celiotomy, lysis of adhesions and small bowel resection. Patient is continuing to recover. Remains nothing by mouth. Continue IV antibiotics. Intraoperative surgical cultures growing gram-positive cocci. Patient is currently on Cipro and Flagyl with normal WBC count. Has responded well. We will continue current antibiotics. We will await final culture results. At this time no indication to change antibiotics. Patient does not have a history of MRSA. (2) SBO (small bowel obstruction) Current Visit: Yes Status: Acute Assessment and Plan: Status post surgery as described above. Keep nothing by mouth until bowel function returns. Surgery following. (3) Hypertension Current Visit: Yes Status: Chronic Assessment and Plan: Blood pressure fairly controlled. Continue Lopressor every 6 hours intravenously. (4) DVT prophylaxis Current Visit: Yes Status: Acute Assessment and Plan: On subcutaneous heparin - Time Spent with Patient Total time spent is greater than 50% in coordination of care (as documented) at patient's floor/unit and/or counseling patient: Internal Medicine: Result - Labs CBC & Chem 7: 06/22/18 02:54 06/22/18 02:54 Labs: Short CBC 06/22/18 Range/Units 02:54 WBC 9.9 (4.3-11.1) K/mcL Hgb 12.5 L (12.9-16.9) g/dL Hct 37.8 (37.5-50.1) % Plt Count 195 (140-400) K/mcL Neutrophils # 8.1 (1.6-8.9) K/mcL BMP 06/22/18 02:54 Sodium 136 Potassium 4.1 Chloride 104 Carbon Dioxide 26 BUN 15 Creatinine 0.79 Glucose 107 H Calcium 8.0 L - ABG Interpretation ABG results: PT/INR, D-dimer PT 13.5 Seconds (9.4-12.1) H 06/17/18 07:36 Consult Discharge Plan - Plan Referrals: Logan Miranda DO [Primary Care Provider] - (1) Diverticulitis small intestine Qualifiers: Diverticulitis bleeding: without bleeding Diverticulitis complication: unspecified complication status Qualified Code(s): K57.12 - Diverticulitis of small intestine without perforation or abscess without bleeding (3) Hypertension Qualifiers: Hypertension type: essential hypertension Qualified Code(s): I10 - Essential (primary) hypertension
[2018-06-22] MEDS ORDERED: Acetaminophen 325 MG TABLET PO PRN (13:04)
[2018-06-22] MEDS ORDERED: *HR* OxyCODONE Immed Rel 5 MG TABLET PO PRN (13:04)
--- NOTE | 2018-06-22 13:14 | General Surgery Progress Note ---
Date of Encounter: 06/22/18 Time of Encounter: 13:07 Subjective Narrative: General Surgery - POD #2 Patient indicates that he is feeling well; minimal incisional pain. No nausea or vomiting. No flatus or BM yet. Afebrile, patient stable at 98.0, pulse 73-82, respiratory rate 1618, blood pressure 141/88. SPO2 on room air 92% Lungs: Clear; moderate inspiratory effort. Patient reminded to continue to use incentive spirometry Abdomen: Soft, minimal tenderness. Active bowel sounds. Midline incision intact, clean and dry. No peritoneal signs. Urine output: 2150 mL for calendar day 06/21/18; 750 mL so far today Operative cultures: gram-positive cocci; awaiting final identification and sensitivities Operative pathology: Pending Labs: WBC 9.9 with normal differential (previously elevated neutrophils have resolved) Hemoglobin 12.5, hematocrit 37.8; platelet count 195,000 Sodium 136, potassium 4.1, chloride 104, BUN 15, creatinine 0.79 Impression: Postoperative day #2, status post exploratory celiotomy with small bowel resection to remove an obstructing, calcified fecalith in the mid jejunum. This fecalith appears to have originated from one of the large diverticula identified scattered through the length of the small intestine. The patient is making acceptable progress. Recommendations: Continue current IV antibiotics, Cipro and metronidazole, pending culture results Continue to taper IV fluids Discontinue [employer] Dilaudid, substituting oral immediate release oxycodone Patient to continue activity out of bed; deep breathing and coughing as well as incentive spirometry continue NPO pending effective bowel activity Objective Vital Signs - Last 8 Hours Temp Pulse Resp BP Pulse Ox 06/22/18 10:35 98.0 F 82 18 141/88 92 06/22/18 06:41 98.0 F 79 16 119/76 90 Intake and Output 06/21/18 06/22/18 06/22/18 23:59 07:59 15:59 Intake Total 450 / 450 1300 / 1300 Output Total 400 / 400 750 / 750 0 / 0 Balance 50 / 50 550 / 550 0 / 0 Intake: IV Fluids 400 / 400 1300 / 1300 D5% And 0.45% Nacl 1000 Ml Bag 1000 / 1000 1,000 ML @ 75 mls/hr IVC . [id number] [facility] Rx#:[id number] Cipro Premix 400 MG/200 ML 400 200 / 200 200 / 200 mg In 200 ml @ 200 mls/hr IVPB Q12H [facility] Rx#:[id number] Flagyl Premix 500 MG/100 ML 500 200 / 200 100 / 100 mg In 100 ml @ 100 mls/hr IVPB Q8H [facility] Rx#:[id number] Oral 50 / 50 0 / 0 Output: Urine 400 / 400 750 / 750 0 / 0 Other: Weight 107.7 kg Blood Glucose* 109 86 99 Patient Weight 06/22/18 23:59 Weight 107.7 kg - Labs 06/22/18 02:54 06/22/18 02:54 Diabetes panel 06/22/18 Range/Units 02:54 Sodium 136 (136-145) mEq/L Potassium 4.1 (3.5-5.1) mEq/L Chloride 104 (98-107) mEq/L Carbon Dioxide 26 (23-29) mEq/L BUN 15 (8-23) mg/dL Creatinine 0.79 (0.70-1.30) mg/dL Glucose 107 H (70-105) mg/dL Calcium 8.0 L (8.6-10.3) mg/dL Calcium panel 06/22/18 Range/Units 02:54 Calcium 8.0 L (8.6-10.3) mg/dL Pituitary panel 06/22/18 Range/Units 02:54 Sodium 136 (136-145) mEq/L Potassium 4.1 (3.5-5.1) mEq/L Chloride 104 (98-107) mEq/L Carbon Dioxide 26 (23-29) mEq/L BUN 15 (8-23) mg/dL Creatinine 0.79 (0.70-1.30) mg/dL Glucose 107 H (70-105) mg/dL Calcium 8.0 L (8.6-10.3) mg/dL Adrenal panel 06/22/18 Range/Units 02:54 Sodium 136 (136-145) mEq/L Potassium 4.1 (3.5-5.1) mEq/L Chloride 104 (98-107) mEq/L Carbon Dioxide 26 (23-29) mEq/L BUN 15 (8-23) mg/dL Creatinine 0.79 (0.70-1.30) mg/dL Glucose 107 H (70-105) mg/dL Calcium 8.0 L (8.6-10.3) mg/dL Consult Discharge Plan - Plan Referrals: Logan Miranda DO [Primary Care Provider] -
[2018-06-23] MEDS ORDERED: Dextrose Gel 15 GM/37.5 ML TUBE PO PRN ×2 (00:20)
[2018-06-23] MEDS ORDERED: *HR* Dextrose 50 % in Water (Syg) 50 ML SYRINGE IVP PRN (00:20)
[2018-06-23] MEDS ORDERED: Dextrose 4 GM Chewable Tablets PO PRN ×2 (00:20)
[2018-06-23] MEDS ORDERED: D5% in Water 1,000 ML IVC PRN (00:20)
--- NOTE | 2018-06-23 00:24 | Event Note ---
Date of Encounter: 06/23/18 Time of Encounter: 00:18 Alerted by patient's nurse [facility] that patient had a blood glucose of 74. Patient was not supposed to get D5 in 0.45 NCl until 05:45. Hypoglycemia protocol ordered and nurse instructed to give IVP dextrose and check BG every 15 minute 4 and alert me of the results.
[2018-06-23] MEDS: D5% in 0.45% NACL 1,000 ML IVC SCH (00:51)
[2018-06-23] MEDS: MetroNIDAZOLE 500 MG/100 ML 500 MG/100 ML BAG IVPB SCH (05:06)
[2018-06-23] MEDS: *HR* Heparin 5,000 UNIT/ML VIAL SQ SCH ×2 (05:06→18:29)
[2018-06-23 08:24] LABS: BUN/Creatinine Ratio 15 (6-26); Blood Urea Nitrogen 12 mg/dL (8-23); Calcium 8.3 mg/dL (8.6-10.3); Carbon Dioxide 26 mEq/L (23-29); Chloride 101 mEq/L (98-107); Glucose 120 mg/dL (70-105); Magnesium 1.9 mg/dL (1.6-2.6); Osmolality,Calculated 271 (280-300); Potassium 3.3 mEq/L (3.5-5.1); Sodium 130 mEq/L (136-145); eGFR For Non-African Americans > 60 (> 60)
[2018-06-23] MEDS ORDERED: Potassium Chloride 40 MEQ, Lidocaine 1% 2 ML in D5% in Water 500 ML IVPB ONE (08:25)
[2018-06-23] MEDS: hydroCHLOROthiazide 25 MG TABLET PO SCH (09:30)
[2018-06-23] MEDS ORDERED: D5% in 0.45% NACL 1,000 ML IVC SCH (09:30)
[2018-06-23] MEDS: Pantoprazole 40 MG VIAL IVP SCH (09:31)
[2018-06-23] MEDS: *HR* OxyCODONE Immed Rel 5 MG TABLET PO PRN (10:02)
--- NOTE | 2018-06-23 10:38 | General Surgery Progress Note ---
Date of Encounter: 06/23/18 Time of Encounter: 10:28 Subjective Narrative: General Surgery - POD #3 Events of early this morning noted. Most recent Accu-Chek 96 mg/dL. Patient remains afebrile, 98.2, hemodynamically stable with pulse 84, respirations 15, blood pressure 126/78. Lungs: Clear; inspiratory effort slightly limited by abdominal pain Abdomen: Soft, moderate tenderness to the right of the incision but patient indicates he has not taken any pain meds since discontinuation of the [employer] Dilaudid. The midline incision is intact and healing well. No detected fascial defects. Active bowel sounds. Flatus this morning. Pathology: 5.5 cm segment of jejunum demonstrating diverticulitis, congestion, fibrous adhesions. The appendix was unremarkable. Accompanying the segment of jejunum was 4 cm firm nontissue material which had caused the bowel obstruction. Intraoperative culture results - Enterococcus faecalis Labs: Sodium 1:30, potassium 3.3; other electrolytes, BUN, creatinine within normal limits as are phosphorus and magnesium. Impression/Plan: Status post exploratory celiotomy with small bowel resection to remove an obstructing calcified fecalith which pathology describes as a 4 cm firm non tissue material. Transient hypoglycemia this morning Intraoperative cultures demonstrating Enterococcus faecalis. Ampicillin will be initiated. Cipro metronidazole will be discontinued Bowel functioning resuming; allow clear liquids. Postoperative hypokalemia - oral supplementation ordered Objective Vital Signs - Last 8 Hours Temp Pulse Resp BP Pulse Ox 06/23/18 06:29 98.2 F 84 15 126/78 91 06/23/18 03:35 97.5 F L 81 15 154/82 93 Intake and Output 06/22/18 06/23/18 06/23/18 23:59 07:59 15:59 Intake Total 1300 / 1300 300 / 300 100 / 100 Output Total 850 / 850 1050 / 1050 350 / 350 Balance 450 / 450 -750 / -750 -250 / -250 Intake: IV Fluids 1300 / 1300 300 / 300 100 / 100 D5% And 0.45% Nacl 1000 Ml Bag 1000 / 1000 1,000 ML @ 75 mls/hr IVC . [id number] [facility] Rx#:[id number] Cipro Premix 400 MG/200 ML 400 200 / 200 200 / 200 mg In 200 ml @ 200 mls/hr IVPB Q12H [facility] Rx#:[id number] Flagyl Premix 500 MG/100 ML 500 100 / 100 100 / 100 mg In 100 ml @ 100 mls/hr IVPB Q8H [facility] Rx#:[id number] Oral 0 / 0 0 / 0 Output: Urine 850 / 850 1050 / 1050 350 / 350 Other: Meal npo NPO Weight 107.5 kg Blood Glucose* 82 96 Patient Weight 06/23/18 23:59 Weight 107.5 kg - Labs 06/22/18 02:54 06/23/18 07:55 Diabetes panel 06/23/18 Range/Units 07:55 Sodium 130 L (136-145) mEq/L Potassium 3.3 L (3.5-5.1) mEq/L Chloride 101 (98-107) mEq/L Carbon Dioxide 26 (23-29) mEq/L BUN 12 (8-23) mg/dL Creatinine 0.81 (0.70-1.30) mg/dL Glucose 120 H (70-105) mg/dL Calcium 8.3 L (8.6-10.3) mg/dL Calcium panel 06/23/18 Range/Units 07:55 Calcium 8.3 L (8.6-10.3) mg/dL Phosphorus 3.0 (2.7-4.5) mg/dL Pituitary panel 06/23/18 Range/Units 07:55 Sodium 130 L (136-145) mEq/L Potassium 3.3 L (3.5-5.1) mEq/L Chloride 101 (98-107) mEq/L Carbon Dioxide 26 (23-29) mEq/L BUN 12 (8-23) mg/dL Creatinine 0.81 (0.70-1.30) mg/dL Glucose 120 H (70-105) mg/dL Calcium 8.3 L (8.6-10.3) mg/dL Adrenal panel 06/23/18 Range/Units 07:55 Sodium 130 L (136-145) mEq/L Potassium 3.3 L (3.5-5.1) mEq/L Chloride 101 (98-107) mEq/L Carbon Dioxide 26 (23-29) mEq/L BUN 12 (8-23) mg/dL Creatinine 0.81 (0.70-1.30) mg/dL Glucose 120 H (70-105) mg/dL Calcium 8.3 L (8.6-10.3) mg/dL Consult Discharge Plan - Plan Referrals: Scurti,Logan, DO [Primary Care Provider] -
[2018-06-23] MEDS: Amoxicillin 500 MG CAPSULE PO SCH ×2 (13:24→20:55)
--- NOTE | 2018-06-23 16:18 | Internal Med Progress Note ---
Hospitalist Progress Note - Encounter Date of Encounter: 06/23/18 Time of Encounter: 09:00 - Subjective Interval History: Patient denies abdominal pain, nausea, or vomiting. Patient has passed flatus. Started clear liquid diet per surgery. Vitals are stable. No fever. - Exam Vitals: Temp Pulse Resp BP Pulse Ox 98.4 F 95 16 149/99 92 06/23/18 15:55 06/23/18 15:55 06/23/18 15:55 06/23/18 15:55 06/23/18 15:55 Exam: General: Patient is alert, mild distress, oriented x 3 Respiratory: Good respiratory effort. Normal breath sounds. No wheezing or crackles. Cardiovascular: Regular rate and rhythm. s1 and s2 normal No clicks, rubs, gallops, or murmurs. No pedal edema Abdomen: Abdomen is soft, tender at surgical site. Bowel sounds are present Musculoskeletal: Spontaneously moving all extremities Skin: warm, dry, intact. Neuro: Alert oriented x 3 normal cranial nerves, no focal deficits - Assessment and Plan (1) SBO (small bowel obstruction) Current Visit: Yes Status: Acute Assessment and Plan: Status post surgery as described above. On clear liquid diet. Surgery following. (2) Hypertension Current Visit: Yes Status: Chronic Assessment and Plan: Resume home medications as diet has resumed (3) DVT prophylaxis Current Visit: Yes Status: Acute Assessment and Plan: On subcutaneous heparin (4) Diverticulitis small intestine Current Visit: Yes Status: Acute Assessment and Plan: Postop day 3. Status post exploratory celiotomy, lysis of adhesions and small bowel resection. Patient is continuing to recover. - Started clear liquid diet per surgery - Antibiotics changed to amoxicillin per wound culture results (Enterococcus) DVT Prophylaxis: Sc heparin - Time Spent with Patient Total time spent is greater than 50% in coordination of care (as documented) at patient's floor/unit and/or counseling patient: 30 minutes 25 - 35 minutes Plan of Care Discussed with: patient Internal Medicine: Result - Labs CBC & Chem 7: 06/22/18 02:54 06/23/18 07:55 Labs: BMP 06/23/18 07:55 Sodium 130 L Potassium 3.3 L Chloride 101 Carbon Dioxide 26 BUN 12 Creatinine 0.81 Glucose 120 H Calcium 8.3 L - ABG Interpretation ABG results: PT/INR, D-dimer PT 13.5 Seconds (9.4-12.1) H 06/17/18 07:36 Consult Discharge Plan - Plan Referrals: Logan Miranda DO [Primary Care Provider] - ___ (2) Hypertension Qualifiers: Hypertension type: essential hypertension Qualified Code(s): I10 - Essential (primary) hypertension (4) Diverticulitis small intestine Qualifiers: Diverticulitis bleeding: without bleeding Diverticulitis complication: unspecified complication status Qualified Code(s): K57.12 - Diverticulitis of small intestine without perforation or abscess without bleeding
[2018-06-24] MEDS: *HR* OxyCODONE Immed Rel 5 MG TABLET PO PRN ×2 (00:26→08:19)
[2018-06-24 03:57] LABS: Basophils % 0.4 %; Eosinophils # 0.2 K/mcL (0.0-0.6); Hematocrit 44.9 % (37.5-50.1); Immature Granulocytes % 1.2 % (0-4); Lymphocytes # 0.9 K/mcL (0.6-4.6); Lymphocytes % 12.6 %; Mean Corpuscular HGB Conc 33.6 g/dL (31.6-35.5); Mean Corpuscular Hemoglobin 29.8 pg (28.0-33.3); Mean Corpuscular Volume 88.7 fL (83.0-100.0); Mean Platelet Volume 9.1 fL (9.4-12.4); Monocytes # 0.6 K/mcL (0.0-1.3); Monocytes % 8.5 %; Neutrophils # 5.5 K/mcL (1.6-8.9); Platelet Count 309 K/mcL (140-400); Red Blood Count 5.06 M/mcL (4.19-5.50); Segmented Neutrophils % 74.3 %
[2018-06-24 03:58] LABS: Hemoglobin 15.1 g/dL (12.9-16.9)
[2018-06-24 04:13] LABS: BUN/Creatinine Ratio 16 (6-26); Blood Urea Nitrogen 12 mg/dL (8-23); Calcium 8.5 mg/dL (8.6-10.3); Carbon Dioxide 24 mEq/L (23-29); Chloride 104 mEq/L (98-107); Glucose 114 mg/dL (70-105); Osmolality,Calculated 275 (280-300); Potassium 4.1 mEq/L (3.5-5.1); Sodium 132 mEq/L (136-145); eGFR For Non-African Americans > 60 (> 60)
[2018-06-24] MEDS: *HR* Heparin 5,000 UNIT/ML VIAL SQ SCH (05:03)
[2018-06-24] MEDS: hydroCHLOROthiazide 25 MG TABLET PO SCH (08:19)
[2018-06-24] MEDS: Amoxicillin 500 MG CAPSULE PO SCH (08:19)
[2018-06-24] MEDS: Pantoprazole 40 MG VIAL IVP SCH (08:20)
[2018-06-24 10:55] VITALS: BP 138/89
[2018-06-24] MEDS ORDERED: *HR* OxyCODONE/APAP 5/325 TABLET PO PRN (12:25)
--- NOTE | 2018-06-24 12:40 | General Surgery Progress Note ---
Date of Encounter: 06/24/18 Time of Encounter: 12:00 Subjective Patient reports: feels better, tolerating liquids well, flatus, no bowel movement Narrative: General Surgery - POD #4 Patient feeling significantly improved; yesterday spent a large portion of the day sleeping but this was most likely to the sleepless night experienced the evening before when he demonstrated hypoglycemia. The patient is tolerating a full liquid diet. No nausea or vomiting. Patient is passing flatus but no BM yet. The patient has remained afebrile, pulse 82-96, respirations 16, blood pressure 125/84 to 138/89. Lungs: Clear Abdomen: Soft, nontender. Midline incision intact and healing well. No detected fascial defects. Staple line intact. Active bowel sounds. Urine output 3850 mL for calendar day 06/23/18; 1550 mL so far today Labs: WBC 7.5 with normal differential; hemoglobin 15.1, hematocrit 44.9 Sodium 132, potassium 4.1, chloride 104, bicarbonate 24, BUN 12, creatinine 0.75 Impression: Postoperative day #4 - status post exploratory celiotomy with small bowel resection to address jejunal diverticulitis as well as an SBO. The SBO appears to be d/t a hard, partially calcified fecalith that developed in one of the multiple large diverticula scattered throughout the small intestine lodging in a more narrow distal segment of bowel causing the obstruction. Operative cultures demonstrate enterococcus faecalis for which ampicillin has been initiated. Recommendations: Patient may be discharged home from a surgical standpoint. I have discussed this with Dr Hernandez/Hospitalist Patient may consume a regular diet Activity as tolerated. Lifting limited to less than 20 pounds Patient may shower, wash incision with soap and water Ointments, such as Neosporin, bacitracin, mupirocin, not needed to recommend Continue amoxicillin 1000 mg by mouth twice a day to complete a 10 day course (until 07/02/18) Tylenol, ibuprofen, Motrin, Advil, etc. as needed for pain Prescription for Percocet 5/325, #12, one every 6 hours as needed for pain not relieved by [id number] medications Outpatient follow-up my office, 06/28/18. These instructions were extensively discussed with the patient and his . Objective Vital Signs - Last 8 Hours Temp Pulse Resp BP Pulse Ox 06/24/18 10:53 99.4 F 96 16 138/89 94 06/24/18 06:36 98.2 F 90 16 125/84 91 06/24/18 04:38 98.7 F 82 16 142/82 97 Intake and Output 06/23/18 06/24/18 06/24/18 23:59 07:59 15:59 Intake Total 240 / 240 Output Total 850 / 850 1150 / 1150 400 / 400 Balance -850 / -850 -1150 / -1150 -160 / -160 Intake: Oral 240 / 240 Output: Urine 850 / 850 1150 / 1150 400 / 400 Other: Meal Breakfast Percent of Meal Consumed 50% # Bowel Movements 0 0 Weight 107.2 kg Blood Glucose* 119 Patient Weight 06/24/18 23:59 Weight 107.2 kg - Labs 06/24/18 03:24 06/24/18 03:24 Diabetes panel 06/24/18 06/24/18 Range/Units 03:24 03:24 Sodium 132 L (136-145) mEq/L Potassium 4.1 4.1 (3.5-5.1) mEq/L Chloride 104 (98-107) mEq/L Carbon Dioxide 24 (23-29) mEq/L BUN 12 (8-23) mg/dL Creatinine 0.75 (0.70-1.30) mg/dL Glucose 114 H (70-105) mg/dL Calcium 8.5 L (8.6-10.3) mg/dL Calcium panel 06/24/18 Range/Units 03:24 Calcium 8.5 L (8.6-10.3) mg/dL Pituitary panel 06/24/18 06/24/18 Range/Units 03:24 03:24 Sodium 132 L (136-145) mEq/L Potassium 4.1 4.1 (3.5-5.1) mEq/L Chloride 104 (98-107) mEq/L Carbon Dioxide 24 (23-29) mEq/L BUN 12 (8-23) mg/dL Creatinine 0.75 (0.70-1.30) mg/dL Glucose 114 H (70-105) mg/dL Calcium 8.5 L (8.6-10.3) mg/dL Adrenal panel 06/24/18 06/24/18 Range/Units 03:24 03:24 Sodium 132 L (136-145) mEq/L Potassium 4.1 4.1 (3.5-5.1) mEq/L Chloride 104 (98-107) mEq/L Carbon Dioxide 24 (23-29) mEq/L BUN 12 (8-23) mg/dL Creatinine 0.75 (0.70-1.30) mg/dL Glucose 114 H (70-105) mg/dL Calcium 8.5 L (8.6-10.3) mg/dL Consult Discharge Plan - Plan Referrals: Jean Argueta MD [Non-Partnered Physician] - Logan Miranda DO [Primary Care Provider] -
--- NOTE | 2018-06-24 12:45 | Discharge Summary ---
Outpatient Proc Discharge Plan - Plan Additional Instructions: Patient may consume a regular diet Activity as tolerated. Lifting limited to less than 20 pounds Patient may shower, wash incision with soap and water Ointments, such as Neosporin, bacitracin, mupirocin, not needed to recommend Continue amoxicillin 1000 mg by mouth twice a day to complete a 10 day course (until 07/02/18) Tylenol, ibuprofen, Motrin, Advil, etc. as needed for pain Prescription for Percocet 5/325, #12, one every 6 hours as needed for pain not relieved by [id number] medications Outpatient follow-up my office, 06/28/18. Prescriptions: Amoxicillin [Amoxil] 1,000 mg PO BID #16 capsule OxyCODONE/APAP 5/325 [Percocet 5/325 MG] 1 each PO Q6H PRN 3 Days #12 tablet PRN Reason: pain not relieved OTC Home Medications: Aspirin [Lo-Dose Aspirin EC] 81 mg PO DAILY 06/18/18 [History] Atorvastatin [Lipitor] 40 mg PO HS 06/18/18 [History] Losartan Potassium 100 mg PO DAILY 06/18/18 [History] hydroCHLOROthiazide [Hydrochlorothiazide] 12.5 mg PO DAILY 06/18/18 [History] Acetaminophen [Tylenol] 650 mg PO Q6HR PRN tablet 06/24/18 [Rx] Amoxicillin [Amoxil] 1,000 mg PO BID #16 capsule 06/24/18 [Rx] OxyCODONE/APAP 5/325 [Percocet 5/325 MG] 1 each PO Q6H PRN 3 Days #12 tablet 06/24/18 [Rx]
--- NOTE | 2018-06-24 12:57 | Discharge Summary ---
Orders not resulted at time of discharge: Pending orders 06/20/18 10:50 Culture,Anaerobic [RM] Routine Culture,Wound [RM] Routine Date of Encounter: 06/24/18 Time of Encounter: 12:00 - Discharge Diagnosis (1) SBO (small bowel obstruction) Priority: Primary Status: Acute (2) Hypertension Priority: Secondary Status: Chronic Qualifiers: Hypertension type: essential hypertension Qualified Code(s): I10 - Essential (primary) hypertension (3) DVT prophylaxis Priority: Secondary Status: Acute (4) Diverticulitis small intestine Priority: Primary Status: Acute Qualifiers: Diverticulitis bleeding: without bleeding Diverticulitis complication: unspecified complication status Qualified Code(s): K57.12 - Diverticulitis of small intestine without perforation or abscess without bleeding Hospital course: Mr. Tatum is a 63 year old male presented to ER for abdominal pain, nausea, and vomiting. CT abdomen shows small bowel obstruction. Surgical consult was called and saw patient. Further CT shows diverticulitis. Patient was started antibiotics, nothing by mouth, IV fluid. After treatment, patient's symptoms not improved. Finally, exploratory celiotomy, lysis of adhesions; small bowel resection with stapled enteroenterostomy; incidental appendectomy has been done by surgery consult Dr. Argueta. After surgery, patient recovered well. Intraoperative wound culture shows Enterococcus, sensitive to amoxicillin. Antibiotics placed by surgery per sensitivity. Patient to tolerate diet well, surgical consult cleared to discharge home today. Will DC patient home. I have seen and examined the patient today. Feels fine. Tolerated diet well, no nausea vomiting abdominal pain. Passed gas. Vitals are stable, no fever, no leukocytosis. Patient ambulated in room without difficulty. Will DC patient home and continue follow-up with surgery and PCP as outpatient. Discharge discussed with: patient - Time Spent with Patient Total time spent providing and/or coordinating discharge services: 40 minutes Time spent: Greater than 30 minutes - Discharge Medications Prescriptions: New Acetaminophen [Tylenol] 650 mg PO Q6HR PRN tablet PRN Reason: mild Pain Amoxicillin [Amoxil] 1,000 mg PO BID #16 capsule OxyCODONE/APAP 5/325 [Percocet 5/325 MG] 1 each PO Q6H PRN 3 Days #12 tablet PRN Reason: pain not relieved OTC Continue Aspirin [Lo-Dose Aspirin EC] 81 mg PO DAILY Atorvastatin [Lipitor] 40 mg PO HS hydroCHLOROthiazide [Hydrochlorothiazide] 12.5 mg PO DAILY Losartan Potassium 100 mg PO DAILY Home Medications: Aspirin [Lo-Dose Aspirin EC] 81 mg PO DAILY 06/18/18 [History] Atorvastatin [Lipitor] 40 mg PO HS 06/18/18 [History] Losartan Potassium 100 mg PO DAILY 06/18/18 [History] hydroCHLOROthiazide [Hydrochlorothiazide] 12.5 mg PO DAILY 06/18/18 [History] Acetaminophen [Tylenol] 650 mg PO Q6HR PRN tablet 06/24/18 [Rx] Amoxicillin [Amoxil] 1,000 mg PO BID #16 capsule 06/24/18 [Rx] OxyCODONE/APAP 5/325 [Percocet 5/325 MG] 1 each PO Q6H PRN 3 Days #12 tablet 06/24/18 [Rx] Allergies/Adverse Reactions: Allergy/AdvReac Type Severity Reaction Status Date / Time No Known Drug Allergies AdvReac Unknown See Verified 06/18/18 09:30 Comments Date of admission: 06/17/18 06:12 Primary care physician: Logan Miranda DO Consults: 06/17/18 06:14 Consult to Physician [CONS] Routine Consulting Provider: Jean Argueta Reason for Consult: SBO Call Completed: Yes Discharging clinician: Miranda Hernandez Anticipated date of discharge: 06/24/18 - Constitutional Vitals: Temp Pulse Resp BP Pulse Ox 99.4 F 96 16 138/89 94 06/24/18 10:53 06/24/18 10:53 06/24/18 10:53 06/24/18 10:53 06/24/18 10:53 General appearance: Present: cooperative, A&O X 3, pleasant, no acute distress, answers questions appropriately Exam: General: Patient is alert, mild distress, oriented x 3 Respiratory: Good respiratory effort. Normal breath sounds. No wheezing or crackles. Cardiovascular: Regular rate and rhythm. s1 and s2 normal No clicks, rubs, gallops, or murmurs. No pedal edema Abdomen: Abdomen is soft, tender at surgical site. Bowel sounds are present Musculoskeletal: Spontaneously moving all extremities Skin: warm, dry, intact. Neuro: Alert oriented x 3 normal cranial nerves, no focal deficits - Patient Status Disposition: Home, Self-Care Condition: Good Functional capacity at discharge: independent ambulation Overall status at discharge: patient is progressing back to baseline - Discharge Instructions Follow Up With: Jean Argueta MD [Non-Partnered Physician] - 06/28/18 2:20 pm Logan Miranda DO [Primary Care Provider] - Additional Instructions: Patient may consume a regular diet Activity as tolerated. Lifting limited to less than 20 pounds Patient may shower, wash incision with soap and water Ointments, such as Neosporin, bacitracin, mupirocin, not needed to recommend Continue amoxicillin 1000 mg by mouth twice a day to complete a 10 day course (until 07/02/18) Tylenol, ibuprofen, Motrin, Advil, etc. as needed for pain Prescription for Percocet 5/325, #12, one every 6 hours as needed for pain not relieved by [id number] medications Outpatient follow-up my office, 06/28/18. - Diet and Activity Activity: increase activity as tolerated Diet: other (Full liquid diet)
== END 2018-06-24 14:44 | disposition home or self-care (01) | DRG 330 ==
LOC: 3ANU → SUATTDRO 06:12
PROVIDERS: ADMIT Family Medicine; ATTEND Internal Medicine

== ENCOUNTER 2020-02-05 08:16 | Inpatient (IN) ==
[2020-02-05] MEDS ORDERED: Acetaminophen 325 MG TABLET PO PRN (11:13)
[2020-02-05] MEDS ORDERED: Ringers Solution, Lactated 1,000 ML IVC ONE (11:29)
[2020-02-05] MEDS ORDERED: Ibuprofen 400 MG TABLET PO PRN (11:29)
[2020-02-05] MEDS ORDERED: Isovue-370 500 ML BOTTLE IVP ONE (12:33)
[2020-02-05 12:36] LABS: Hematocrit 41.9 % (37.5-50.1); Hemoglobin 13.8 g/dL (12.9-16.9); Mean Corpuscular HGB Conc 32.9 g/dL (31.6-35.5); Mean Corpuscular Hemoglobin 30.7 pg (28.0-33.3); Mean Corpuscular Volume 93.1 fL (83.0-100.0); Mean Platelet Volume 8.8 fL (9.4-12.4); Platelet Count 357 K/mcL (140-400); Red Cell Distribution Width 12.9 % (11.5-14.5); White Blood Count 11.9 K/mcL (4.3-11.1)
[2020-02-05 12:55] LABS: Alanine Aminotransferase 27 Units/L (7-52); Albumin 3.5 g/dL (3.5-5.7); Albumin/Globulin Ratio 1.2 (1.1-2.2); Alkaline Phosphatase 97 Units/L (34-104); Aspartate Amino Transferase 18 Units/L (13-39); BUN/Creatinine Ratio 14 (6-26); Blood Urea Nitrogen 17 mg/dL (8-23); Calcium 8.7 mg/dL (8.6-10.3); Carbon Dioxide 25 mEq/L (23-29); Chloride 97 mEq/L (98-107); Glucose 91 mg/dL (70-105); Osmolality,Calculated 275 (280-300); Potassium 3.5 mEq/L (3.5-5.1); Sodium 132 mEq/L (136-145); Total Protein 6.5 g/dL (6.4-8.9); eGFR For African Americans > 60 (> 60); eGFR For Non-African Americans 60 (> 60)
[2020-02-05] MEDS: Piperacillin/Tazobactam 3.375 GM in 0.9 % Sodium Chloride Mini Bag 100 ML IVPB SCH ×2 (13:33→20:45)
[2020-02-05] MEDS ORDERED: Vancomycin 1,500 MG/265 ML IV.SOLN IVPB STA (14:01)
[2020-02-05] MEDS: Ringers Solution, Lactated 1,000 ML IVC SCH (15:19)
[2020-02-06] MEDS: Ringers Solution, Lactated 1,000 ML IVC SCH ×3 (01:30→14:36)
[2020-02-06] MEDS: Piperacillin/Tazobactam 3.375 GM in 0.9 % Sodium Chloride Mini Bag 100 ML IVPB SCH ×3 (05:48→22:41)
[2020-02-06] MEDS: Aspirin Enteric Coated 81 MG Tablet PO SCH (09:10)
[2020-02-06] MEDS ORDERED: Vancomycin 1,500 MG/265 ML IV.SOLN IVPB ONE (15:00)
[2020-02-06] MEDS ORDERED: Piperacillin/Tazobactam 3.375 GM VIAL ONE (22:35)
[2020-02-07] MEDS: Piperacillin/Tazobactam 3.375 GM in 0.9 % Sodium Chloride Mini Bag 100 ML IVPB SCH ×2 (06:07→15:59)
[2020-02-07] MEDS: Ringers Solution, Lactated 1,000 ML IVC SCH (06:08)
[2020-02-07 06:35] LABS: Basophils % 0.3 %; Eosinophils # 0.4 K/mcL (0.0-0.6); Eosinophils % 5.5 %; Hematocrit 37.8 % (37.5-50.1); Hemoglobin 12.7 g/dL (12.9-16.9); Immature Granulocytes % 0.4 % (0-4); Lymphocytes # 0.9 K/mcL (0.6-4.6); Lymphocytes % 12.5 %; Mean Corpuscular HGB Conc 33.6 g/dL (31.6-35.5); Mean Corpuscular Hemoglobin 31.3 pg (28.0-33.3); Mean Corpuscular Volume 93.1 fL (83.0-100.0); Mean Platelet Volume 8.7 fL (9.4-12.4); Monocytes # 0.7 K/mcL (0.0-1.3); Monocytes % 9.5 %; Neutrophils # 5.4 K/mcL (1.6-8.9); Platelet Count 300 K/mcL (140-400); Red Blood Count 4.06 M/mcL (4.19-5.50); Segmented Neutrophils % 71.8 %; White Blood Count 7.5 K/mcL (4.3-11.1)
[2020-02-07 07:26] LABS: BUN/Creatinine Ratio 15 (6-26); Blood Urea Nitrogen 14 mg/dL (8-23); Calcium 8.5 mg/dL (8.6-10.3); Carbon Dioxide 26 mEq/L (23-29); Chloride 101 mEq/L (98-107); Glucose 92 mg/dL (70-105); Osmolality,Calculated 282 (280-300); Sodium 136 mEq/L (136-145); eGFR For African Americans > 60 (> 60); eGFR For Non-African Americans > 60 (> 60)
[2020-02-07 08:25] LABS: INR 1.4; Prothrombin Time 15.6 Seconds (9.4-12.1)
[2020-02-07] MEDS: Aspirin Enteric Coated 81 MG Tablet PO SCH (09:44)
[2020-02-07] MEDS ORDERED: *HR* FentaNYL (PF) 100 MCG/2 ML VIAL ONE (13:52)
[2020-02-07] MEDS ORDERED: *HR* FentaNYL (PF) 100 MCG/2 ML VIAL IVP ONE (13:57)
[2020-02-07] MEDS ORDERED: Vancomycin 1,500 MG/265 ML IV.SOLN IVPB SCH (15:00)
[2020-02-07 15:22] VITALS: BP 133/77
== END 2020-02-07 17:34 | disposition home or self-care (01) | DRG 919 ==
LOC: 3ANU
PROVIDERS: ADMIT Surgery; ATTEND Surgery
PROC: IRFLUID (2020-02-07 13:00)